=== PATIENT | female | born 1935 | race Caucasian/White ===

== ENCOUNTER 2023-08-27 16:08 | Inpatient (IN) ==
--- NOTE | 2023-08-27 16:47 | ED Triage Note ---
Date of Service August 27, 2023 Provider in Triage Author: Sly Snider History of Present Illness This patient was briefly evaluated while in triage. An abbreviated physical exam was performed. This patient is a 87-year-old Female who presents to the ED for evaluation of dehydration. 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 Had radiation 6 days ago and her throat is very sore from the radiation. Having a lot of trouble swallowing for the past couple days from the pain. She is able to swallow, just very painful. Not able to eat or drink much. Hgb down to 9.6 this morning. No fevers, cough, or URI symptoms. Physical Exam GENERAL: Non-toxic and in no acute distress. HEENT: Pupils equal. No obvious scleral icterus. Erythema and mass to the left side of the neck. Pharynx and tongue are erythematous with ulcers and white patches. HEART: Regular rate and rhythm. LUNGS: Clear to auscultation. No accessory muscle use. ABDOMEN: Soft, non-tender to palpation. NEURO: Alert and oriented. No obvious neurological deficits on quick neuro exam. Initial orders for labs and / or imaging were placed and patient was placed in the waiting area until a bed is available. Please see further documentation for the full ED course. MDM / Impression Impression Impression: Weakness, Dehydration, Throat cancer
[2023-08-27] MEDS: SODIUM CHLORIDE 0.9% 1,000 ML IV STA (17:05)
[2023-08-27 17:33] LABS: Hematocrit (blood only) 34.2 % (37.0-47.0); Hemoglobin 11.1 g/dl (12.0-16.0); Mean Corpuscular Hemoglobin 26.8 pg (25.0-34.0); Mean Corpuscular Hgb Conc 32.5 g/dL (32.0-36.0); Mean Corpuscular Volume 82.6 fL (80.0-100.0); Mean Platelet Volume 9.8 fL (9.4-12.4); Platelet Count 457 K/uL (130-400); RDW Coefficient of Variation 14.2 % (11.5-14.5); RDW Standard Deviation 42.7 fL (36.4-46.3); Red Blood Count 4.14 M/uL (4.20-5.40); White Blood Count 34.56 K/ul (4.8-10.8)
[2023-08-27 17:44] LABS: Albumin Level 3.1 gm/dl (3.4-5.0); BUN Creatinine Ratio 35.4 (10-20); Bilirubin,Total 0.6 mg/dl (0.2-1.0); Calcium 9.3 mg/dl (8.6-10.3); Creatinine Clr Calc Pharmacy 61.5 ml/min; Est GFR (African American) 92.5 ml/min; Est GFR (Non-African American) 79.8 ml/min; Globulin 3.1 gm/dl (2.5-4.0); Magnesium 1.9 mg/dl (1.7-2.4); Potassium 3.8 mmol/L (3.5-5.1); Total Protein 6.2 gm/dl (6.0-8.3)
[2023-08-27 17:50] LABS: Troponin I High Sensitivity 10.4 pg/ml (0-14)
[2023-08-27 17:55] LABS: INR 1.1 (0.9-1.1); Partial Thromboplastin Time 28 Seconds (21-31); Prothrombin Time 11.9 Seconds (9.0-12.0)
[2023-08-27] MEDS: MoRPHine SULFATE 2 MG/ML CARP IV STA (18:21)
[2023-08-27] MEDS: ONDANSETRON INJ 2 MG/ML 2 ML VIAL IV STA (18:21)
--- NOTE | 2023-08-27 18:21 | Emergency Department Note ---
Impression & Plan Weakness, Dehydration, Throat cancer ED Provider Note Provider: Sly Snider MD DATE OF SERVICE: 08/27/2023 CHIEF COMPLAINT: Dehydration, abnormal labs HISTORY OF PRESENT ILLNESS: Patient is a 87-year-old female history of PMR unfortunately throat cancer status postradiation presenting here today from [facility]. Moved to the area to be closer to family now at [facility] over the last several days. Had radiation treatment finishing last week. Prior ENT/head and neck treatment in [place]. Patient however over the past week has had worsening difficulty swallowing. Having burning sensation of her mouth and neck. Having difficulty swallowing and taking medications. Ibuprofen and Tylenol being used as well as some hydrocodone and oxycodone with minimal improvement. Nauseous at times. Little bit of diarrhea this morning maybe a little bit of lower abdominal discomfort earlier. Reports over main discomfort around the neck. Maybe a fever few days ago but denies significant rhinorrhea or difficulty breathing. Feeling lightheaded and weak and dizzy now with decreased intake concerns for dehydration. Outpatient blood work was concerning possibly for some anemia. Sent here for further evaluation. Patient on chronic prednisone. No falls. Possibly considering hospice or palliative care. PAST MEDICAL HISTORY: As noted above MEDICATIONS: Reviewed medication list SOCIAL HISTORY: Newly a resident at [facility], just moved to the [facility] PHYSICAL EXAM: GENERAL: alert and oriented in no acute distress on stretcher fatigued in appearance Head: normocephalic and atraumatic EYES: No injection, discharge or icterus. NECK: Trachea midline. Right mid to lower neck with swelling (approximately 8 cm in diameter) and some erythema and skin changes there of prior radiation treatment by report. No large active wound or eschar noted. ENT: Mucous membranes pink and somewhat dry. LUNGS: Airway patent. No retractions. Breath sounds clear with good air entry bilaterally. HEART: Regular rate and rhythm. No chest wall tenderness ABDOMEN: Soft and non-tender, without guarding or rebound. No masses appreciated. SKIN: Acyanotic, warm, dry, without rashes with some redness and swelling of the left lower neck as above. EXTREMITIES: Without swelling, tenderness or deformity NEUROLOGICAL: No focal deficits moving all extremities. No aphasia. No facial droop or slurred speech. EK bpm normal sinus rhythm with left bundle branch block. No acute ST segment elevation with some inferior lateral T wave changes and a QTc of 464. No priors available. CONTINUOUS CARDIAC MONITORING: was ordered and showed a heart rate of 70s to 90s bpm in normal sinus rhythm Patient's laboratory studies and imaging reviewed. Differential includes Infection, dehydration, metabolic abnormality, hypo/hyperglycemia, electrolyte disturbance, anemia, hypoxia, cardiac sources, intracerebral event, toxicologic, neurologic, as well as other pathologies. IMPRESSION/MEDICAL DECISION MAKING: Patient blood work reportedly showed some hemoglobin hemoglobin the nines earlier but on repeat here 11.1. Does have significant leukocytosis of 34.5. Unclear baseline. Is chronically on steroids and just had radiation treatment. Afebrile here. Some difficulty swallowing. Not stridulous and breathing okay. Little bit of hyponatremia but no evidence of severe renal dysfunction today. No significant chest pain and troponin normal. EKG with left bundle branch block with no priors for comparison. Abdomen maybe a little bit discomfort earlier with some diarrhea but no significant abdominal tenderness. No evidence of acute hepatitis or pancreatitis on blood work. Given IV fluids here. Will give some Zofran as well as some IV pain medication to help with her mouth and throat pain. Likely postradiation related. Lower suspicion for sepsis or diffuse infection. Is possibly considering hospice and is unsure if she would like a feeding tube. No feel additional imaging the neck would be helpful at this time. Likely some of her components are more related to radiation is already on steroids. Given the difficulties with her oral hydration and intake and weakness at her age, discussed staying for further evaluation and treatment here. Can discuss possible feeding tube and possible palliative care measures while here. Pain needs optimized. I do not believe this represents meningitis or CVA given her lack of focal deficits. DIAGNOSIS: Weakness, dehydration, throat cancer and pain DISPOSITION: Hospitalist will evaluate Patient was agreeable with this plan. Past Med/Surg History Medical History (Updated 08/27/23 @ 19:20 by Isaiah Mace MD) Throat cancer Social History Smoking Status: Never smoker Preferred Language: Iraqi Feels Safe at Home: Yes Allergies Allergies Allergy/AdvReac Type Severity Reaction Status Date / Time NARCOTICS AdvReac Intermediate NAUSEA-"DOESN'T Uncoded 08/27/23 18:35 LIKE TO TAKE" Home Meds Home Medications Medication Instructions Recorded Confirmed acetaminophen 500 mg tablet 1,000 mg PO DIRECTED PRN Pain 08/27/23 08/27/23 (Tylenol Extra Strength) cholecalciferol (vitamin D3) 25 0 mcg PO DAILY 08/27/23 08/27/23 mcg (1,000 unit) capsule (Vitamin D3) duloxetine 30 mg capsule,delayed 0 mg PO DAILY 08/27/23 08/27/23 release (Cymbalta) ibuprofen 200 mg tablet 400 mg PO DIRECTED PRN Pain 08/27/23 08/27/23 levothyroxine 50 mcg tablet 0 mcg PO DAILY 08/27/23 08/27/23 prednisone 5 mg tablet 5 mg PO DAILY 08/27/23 08/27/23 Results & Data (ED) Vital Signs Vital Signs - 24 hr 08/27/23 16:44 08/27/23 17:24 08/27/23 17:30 Temperature 36.4 C L Temperature Source Temporal Artery Scan Pulse Rate 102 H 86 85 Pulse Rate [Apical] Pulse Rate from SpO2 Sensor 86 Respiratory Rate 20 25 H Respiratory Effort / Characteristics Non-Labored Spontaneous Respiratory Depth Normal Blood Pressure 111/68 144/64 H Blood Pressure [Left Arm] Blood Pressure Mean 82 90 Blood Pressure Mean [Left Arm] Pulse Oximetry 97 96 Oxygen Delivery Method Room Air Room Air Sepsis Recent Fever Within 48 Hours No Sepsis New/Unexplained Change in Mental Status No Sepsis Action Taken by Nursing No Action Required 08/27/23 18:00 08/27/23 18:30 08/27/23 18:40 Temperature Temperature Source Pulse Rate 84 84 Pulse Rate [Apical] Pulse Rate from SpO2 Sensor 83 83 Respiratory Rate 16 19 Respiratory Effort / Characteristics Respiratory Depth Blood Pressure 136/72 122/61 Blood Pressure [Left Arm] Blood Pressure Mean 93 99 Blood Pressure Mean [Left Arm] Pulse Oximetry 90 96 Oxygen Delivery Method Room Air Sepsis Recent Fever Within 48 Hours Sepsis New/Unexplained Change in Mental Status Sepsis Action Taken by Nursing 08/27/23 18:50 08/27/23 19:00 08/27/23 19:00 Temperature Temperature Source Pulse Rate 83 82 Pulse Rate [Apical] Pulse Rate from SpO2 Sensor 83 82 Respiratory Rate 14 19 Respiratory Effort / Characteristics Respiratory Depth Blood Pressure 123/61 Blood Pressure [Left Arm] Blood Pressure Mean 101 Blood Pressure Mean [Left Arm] Pulse Oximetry 96 93 Oxygen Delivery Method Sepsis Recent Fever Within 48 Hours Sepsis New/Unexplained Change in Mental Status Sepsis Action Taken by Nursing 08/27/23 19:06 08/27/23 19:10 08/27/23 19:20 Temperature Temperature Source Pulse Rate 82 82 Pulse Rate [Apical] Pulse Rate from SpO2 Sensor 82 82 Respiratory Rate 14 21 Respiratory Effort / Characteristics Respiratory Depth Blood Pressure Blood Pressure [Left Arm] Blood Pressure Mean Blood Pressure Mean [Left Arm] Pulse Oximetry 97 95 93 Oxygen Delivery Method Room Air Sepsis Recent Fever Within 48 Hours Sepsis New/Unexplained Change in Mental Status Sepsis Action Taken by Nursing 08/27/23 19:21 08/27/23 21:19 08/27/23 22:34 Temperature Temperature Source Pulse Rate 83 Pulse Rate [Apical] 81 Pulse Rate from SpO2 Sensor Respiratory Rate 14 16 Respiratory Effort / Characteristics Non-Labored Spontaneous Non-Labored Respiratory Depth Normal Normal Blood Pressure Blood Pressure [Left Arm] 135/66 Blood Pressure Mean Blood Pressure Mean [Left Arm] 89 Pulse Oximetry 95 Oxygen Delivery Method Room Air Sepsis Recent Fever Within 48 Hours Sepsis New/Unexplained Change in Mental Status Sepsis Action Taken by Nursing Laboratory Data 08/27/23 17:06 08/27/23 17:06 Lab Results 08/27/23 08/27/23 Range/Units 17:06 19:30 WBC 34.56 H* (4.8-10.8) K/ul RBC 4.14 L (4.20-5.40) M/uL Hgb 11.1 L (12.0-16.0) g/dl Hct 34.2 L (37.0-47.0) % MCV 82.6 (80.0-100.0) fL MCH 26.8 (25.0-34.0) pg MCHC 32.5 (32.0-36.0) g/dL RDW Std Deviation 42.7 (36.4-46.3) fL RDW Coeff of Franco 14.2 (11.5-14.5) % Plt Count 457 H (130-400) K/uL MPV 9.8 (9.4-12.4) fL Immature Gran % (Auto) 1.2 % Neut % (Auto) 85.6 % Lymph % (Auto) 2.7 % Gosper % (Auto) 9.9 % Eos % (Auto) 0.1 % Baso % (Auto) 0.5 % Neut # (Auto) 29.58 H (1.40-6.50) K/uL Lymph # (Auto) 0.94 L (1.20-3.40) K/uL Gosper # (Auto) 3.43 H (0.11-0.59) K/uL Eos # (Auto) 0.04 (0.00-0.50) K/uL Baso # (Auto) 0.16 (0.00-0.20) K/uL Immature Gran # (Auto) 0.41 H (0.01-0.20) K/uL PT 11.9 (9.0-12.0) Seconds INR 1.1 (0.9-1.1) APTT 28 (21-31) Seconds PTT Ratio 1.0 Sodium 132 L (136-145) mmol/L Potassium 3.8 (3.5-5.1) mmol/L Chloride 95 L (98-107) mmol/L Carbon Dioxide 27 (21-32) mmol/L Anion Gap 10 (3-11) BUN 23 (6-23) mg/dl Creatinine 0.65 (0.6-1.2) mg/dl Est Cr Clr Drug Dosing 61.5 ml/min Est GFR ( Amer) 92.5 ml/min Est GFR (Non-Af Amer) 79.8 ml/min BUN/Creatinine Ratio 35.4 H (10-20) Glucose 115 H (70-99(Fasting)) mg/dl Calcium 9.3 (8.6-10.3) mg/dl Magnesium 1.9 (1.7-2.4) mg/dl Total Bilirubin 0.6 (0.2-1.0) mg/dl AST 12 L (13-39) U/L ALT 6 L (7-52) U/L Alkaline Phosphatase 118 H (34-104) U/L Troponin I High Sens 10.4 (0-14) pg/ml Total Protein 6.2 (6.0-8.3) gm/dl Albumin 3.1 L (3.4-5.0) gm/dl Globulin 3.1 (2.5-4.0) gm/dl Albumin/Globulin Ratio 1.0 (0.9-2) Lipase 9 L (11-82) U/L SARS-CoV-2, RNA, NAAT NEGATIVE (NEGATIVE) Administered Medications Melatonin (Melatonin 3 Mg Tab) 3 mg PO HS PRN PRN Reason: Sleep Stop: 03/01/24 21:56 Last Admin: 08/27/23 22:35 Dose: 3 mg Documented By: BRAnival Discontinued Medications Sodium Chloride (Nss) 1,000 mls @ 999 mls/hr IV .Q1H1M STA Stop: 08/27/23 17:47 Last Infusion: 08/27/23 18:39 Dose: Infused Documented By: Admin: 08/27/23 17:05 Dose: 999 mls/hr Documented By: AM Sodium Chloride (Nss) 500 mls @ 999 mls/hr IV .Q31M ONE Stop: 08/27/23 18:36 Last Infusion: 08/27/23 18:39 Dose: Infused Documented By: Admin: 08/27/23 18:23 Dose: 999 mls/hr Documented By: NH Morphine Sulfate (Morphine Sulfate 2 Mg/Ml Carp) 2 mg IV NOW STA Stop: 08/27/23 18:07 Last Admin: 08/27/23 18:21 Dose: 2 mg Documented By: NH Ondansetron HCl (Ondansetron Inj 2 Mg/Ml 2 Ml Vial) 4 mg IV NOW STA Stop: 08/27/23 18:07 Last Admin: 08/27/23 18:21 Dose: 4 mg Documented By: HI Imaging Data Radiologist's Impression: Chest X-Ray 08/27/23 16:47 XR chest 1V portable HISTORY: Chest pain, nonspecific COMPARISON: None. FINDINGS: The cardiac silhouette is normal in size. There is a mildly tortuous and calcified thoracic aorta. Cervical spinal fusion hardware is noted. No pneumothorax. No focal lung consolidations to suggest a pneumonia. No evidence for pulmonary edema. There is blunting of the right lateral costophrenic sulcus. No acute fractures identified. IMPRESSION: 1. Blunting of the right lateral costophrenic sulcus which could be due to chronic pleural thickening or a trace right pleural effusion. 2. Otherwise, no acute process within the chest. ACT 112: Negative or not required by law. Electronically signed by: Greg Rockwell M.D. 08/27/2023 6:22 PM Discharge Plan Visit Data Chief Complaint: Dehydration Stated Complaint: BLOOD WORK, DEHYDRATION, ABNORMAL LABS ED Provider: Sly Snider Discharge Problem: Weakness, Dehydration, Throat cancer Patient Disposition: Being Evaluated by Hospitalist Forms Stand Alone Forms: My [facility] Prescriptions Prescriptions: No Action prednisone 5 mg Tablet 5 mg PO DAILY acetaminophen [Tylenol Extra Strength] 500 mg Tablet 1,000 mg PO DIRECTED PRN (Reason: Pain) levothyroxine 50 mcg Tablet 0 mcg PO DAILY Rx Instructions: UNSURE OF STRENGTH, UNABLE TO VERIFY ibuprofen 200 mg Tablet 400 mg PO DIRECTED PRN (Reason: Pain) cholecalciferol (vitamin D3) [Vitamin D3] 25 mcg (1,000 unit) Capsule 0 mcg PO DAILY Rx Instructions: UNSURE OF STRENGTH duloxetine [Cymbalta] 30 mg Capsule,Delayed Release(Dr/Ec) 0 mg PO DAILY Rx Instructions: UNSURE OF STRENGTH, UNABLE TO VERIFY Referrals Referrals: PCP,NO [Physician] -
[2023-08-27] MEDS: SODIUM CHLORIDE 0.9% 500 ML IV ONE (18:23)
[2023-08-27 18:24] LABS: Basophils # (auto) 0.16 K/uL (0.00-0.20); Basophils % (auto) 0.5 %; Eosinophils # (auto) 0.04 K/uL (0.00-0.50); Eosinophils % (auto) 0.1 %; Immature Granulocytes # (auto) 0.41 K/uL (0.01-0.20); Immature Granulocytes % (auto) 1.2 %; Lymphocytes # (auto) 0.94 K/uL (1.20-3.40); Lymphocytes % (auto) 2.7 %; Monocytes # (auto) 3.43 K/uL (0.11-0.59); Monocytes % (auto) 9.9 %; Neutrophils # (auto) 29.58 K/uL (1.40-6.50); Neutrophils % (auto) 85.6 %
--- NOTE | 2023-08-27 18:33 | History & Physical Report ---
Date of Service August 27, 2023 History of Present Illness Chief Complaint: Dehydration, weakness, throat pain Primary Care Provider: NO PCP Paloma is an 87-year-old female with PMH of throat cancer. She presented from [facility] for decreased ability to eat and drink x 6 days, which started shortly after she received radiation therapy for her throat cancer. She is not currently on chemo or Neupogen. [facility] also noted down-trending hemoglobin; however, Hgb was 11 on arrival. ED course: ROS: Patient endorses difficulty swallowing Patient denies Past Med/Surg History Social History Smoking Status: Never smoker Preferred Language: Swedish Feels Safe at Home: Yes Physical Exam Physical Exam: General: no acute distress; non-toxic appearing; well-nourished; cooperative HEENT: normocephalic, atraumatic; no scleral icterus; PERRLA w/ EOMs intact; moist mucus membrane; vision and hearing grossly intact Neck: supple; no JVD; no lymphadenopathy; trachea midline Skin: warm, dry without signs of tenting; no cyanosis; no rashes, bruising, lesions, or erythema noted CV: chest wall NTP; RRR; S1/S2 normal; no murmurs/rubs/gallops; pulses intact and symmetric at radial, DP, and PT Lungs: no acute respiratory distress; symmetrical chest wall expansion; clear breath sounds across all lung rosa w/o adventitious sounds; no wheezing ABD: Soft, NTP; BS present; no rebound/guarding; no ascites; no distention; negative CVA tenderness MSK: no tics or fasciculations; no edema noted in the LEs b/l, nonerythematous Neuro: A&Ox3; normal mood and affect; fluent speech; no focal deficits; sensation grossly intact in the LEs b/l Radiation burn neck Results & Data Results & Data Vital Signs (Past 12 Hours) Vital Signs Temp Pulse Resp BP Pulse Ox O2 Del Method 08/27/23 17:24 86 08/27/23 16:44 36.4 C L 102 H 20 111/68 97 Room Air Laboratory Results Abnormal lab results 08/27/23 Range/Units 17:06 WBC 34.56 H* (4.8-10.8) K/ul RBC 4.14 L (4.20-5.40) M/uL Hgb 11.1 L (12.0-16.0) g/dl Hct 34.2 L (37.0-47.0) % Plt Count 457 H (130-400) K/uL Neut # (Auto) 29.58 H (1.40-6.50) K/uL Lymph # (Auto) 0.94 L (1.20-3.40) K/uL Parke # (Auto) 3.43 H (0.11-0.59) K/uL Immature Gran # (Auto) 0.41 H (0.01-0.20) K/uL Sodium 132 L (136-145) mmol/L Chloride 95 L (98-107) mmol/L BUN/Creatinine Ratio 35.4 H (10-20) Glucose 115 H (70-99(Fasting)) mg/dl AST 12 L (13-39) U/L ALT 6 L (7-52) U/L Alkaline Phosphatase 118 H (34-104) U/L Albumin 3.1 L (3.4-5.0) gm/dl Lipase 9 L (11-82) U/L Diagnostic Findings Chest X-Ray 08/27/23 16:47 XR chest 1V portable HISTORY: Chest pain, nonspecific COMPARISON: None. FINDINGS: The cardiac silhouette is normal in size. There is a mildly tortuous and calcified thoracic aorta. Cervical spinal fusion hardware is noted. No p neumothorax. No focal lung consolidations to suggest a pneumonia. No evidence for pulmonary edema. There is blunting of the right lateral costophrenic sulcus. No acute fractures identified. IMPRESSION: 1. Blunting of the right lateral costophrenic sulcus which could be due to chronic pleural thickening or a trace right pleural effusion. 2. Otherwise, no acute process within the chest. ACT 112: Negative or not required by law. Electronically signed by: Greg Rockwell M.D. 08/27/2023 6:22 PM PG Care Time/CCT Total # of Minutes Spent Total Time Spent with Patient: Total time spent is greater than 50% in coordination of care (as documented) at patient's floor/unit and/or counseling patient: Coding
--- NOTE | 2023-08-27 19:12 | History & Physical Report ---
Date of Service August 27, 2023 Assessment & Plan (1) Goals of care, counseling/discussion: Plan: Patient reports that she had hoped that after radiation her pain and symptoms would improve, but she notes that the burning pain only worsened with radiation and she has not gotten any meaningful relief. She reports her mouth is very dry, and she has pain on her left lip border and her left neck. She has not had fever/chills/sweats, she has had tenderness around the neck worsened since radiation. She no longer wishes to pursue further radiation treatments and would like to focus on pain management and hospice. Her daughter notes she would like to have a family discussion with casework manager, palliative care, and the patient tomorrow and in the meantime the patient would like to have one-time hydration by IV overnight with the intention to discontinue all artificial nutrition and transition to BRIDGE CRANE OPERATOR 2/. Should she have any clinical worsening she would want to move BRIDGE CRANE OPERATOR and have family updated. She notes that she feels like it will only be a few days weeks at most and that she both is ready to pass and feels that she is going to pass very soon. Paloma does reports she has intermittent alternating loose bowel movements and some constipation, which have been slightly loose with a diffusely mildly tender abdomen without focal tenderness. She has had multiple hospital exposures noted would be okay with C. difficile treatment and is agreeable to PCR testing, she does not want any type of CAT scans or further imaging to evaluate her abdomen. She also does not wish to have any scans of her neck performed and notes even if there was infection/abscess she would not want surgery or drainage to treat that she would want symptomatic care. - No escalation of care, declines additional imaging. - Palliative, CM consulted (2) Throat cancer: Plan: - s/p one year of Keytruda, recently completed course ofradiation - worsening post-radiation, pt wishes to transition to hospice - Morphine IV for pain control (3) Leukocytosis: Plan: Severe leukocytosis of 34.5 with left shift. No respiratory symptoms, does have increased erythema postradiation has been on steroids however this seems disproportionate for this and is with left shift Patient does have diarrhea and a tender abdomen, declines a CTA/P and CT of the neck. Is okay with PCR testing. Notes she would not surgery/drainage or interventions even if abnormalities were noted (see above). Denies fever/chills/sweats -PCR testing --> If c diff positive tx vanco (4) Dehydration: Plan: - IV abx overnight, anticipate d/c tomorrow and transition to hospice Plan Patient recently transferred to [facility] from [facility]. Records pending DVT: Deferred Diet: Speech consulted prior to advancing. Pt does not wish to eat/drink due to pain at this time. Clears as tolerated CODE: DNR. If worsening --> BRIDGE CRANE OPERATOR Dispo: M/S. History of Present Illness Primary Care Provider: NO PCP Paloma is an 87-year-old female with a past medical history of throat cancer status post 1 year of Keytruda and subsequent radiation therapy who just transferred to [facility] in anticipation of needing additional services for hospice who has had worsened p.o. intake, neck pain post radiation, and loose bowel movements/diarrhea. Seen at the bedside with her daughter and requests initiation of hospice tomorrow. She expresses that she saw her and another family member go through hospice and has a very good understanding of what hospice entails, the decision to focus on quality of life and comfort rather than curative treatments and extending life, and would like to transition to this as soon as possible. Her daughter is at bedside and notes that they do not have the resources for 24-hour care to care for Paloma at home, but would like to transition to hospice with additional services potentially at [facility]. Patient reports that she had hoped that after radiation her pain and symptoms would improve, but she notes that the burning pain only worsened with radiation and she has not gotten any meaningful relief. She reports her mouth is very dry, and she has pain on her left lip border and her left neck. She has not had fever/chills/sweats, she has had tenderness around the neck worsened since radiation. She no longer wishes to pursue further radiation treatments and would like to focus on pain management and hospice. Her daughter notes she would like to have a family discussion with casework manager, palliative care, and the patient tomorrow and in the meantime the patient would like to have one-time hydration by IV overnight with the intention to discontinue all artificial nutrition and transition to BRIDGE CRANE OPERATOR 2/. Should she have any clinical worsening she would want to move BRIDGE CRANE OPERATOR and have family updated tonab Paloma does reports she has intermittent alternating loose bowel movements and some constipation, which have been slightly loose with a diffusely mildly tender abdomen without focal tenderness. She has had multiple hospital exposures noted would be okay with C. difficile treatment and is agreeable to PCR testing, she does not want any type of CAT scans or further imaging to evaluate her abdomen. She also does not wish to have any scans of her neck performed and notes even if there was infection/abscess she would not want surgery or drainage to treat that she would want symptomatic care. Denies chest pain, chest pressure. She notes her pain is significantly improved after 2 mg of morphine in the ER. Patient recently transferred to [facility] from [facility] does not have records available at this time. Requested, patient's daughter will attempt to get updated record Allergies Allergy/AdvReac Type Severity Reaction Status Date / Time NARCOTICS AdvReac Intermediate NAUSEA-"DOESN'T Uncoded 08/27/23 18:35 LIKE TO TAKE" Home Medications Medication Instructions Recorded Confirmed Type acetaminophen 500 mg tablet 1,000 mg PO DIRECTED PRN Pain 08/27/23 08/27/23 History (Tylenol Extra Strength) cholecalciferol (vitamin D3) 25 0 mcg PO DAILY 08/27/23 08/27/23 History mcg (1,000 unit) capsule (Vitamin D3) duloxetine 30 mg capsule,delayed 0 mg PO DAILY 08/27/23 08/27/23 History release (Cymbalta) ibuprofen 200 mg tablet 400 mg PO DIRECTED PRN Pain 08/27/23 08/27/23 History levothyroxine 50 mcg tablet 0 mcg PO DAILY 08/27/23 08/27/23 History prednisone 5 mg tablet 5 mg PO DAILY 08/27/23 08/27/23 History Past Med/Surg History Medical History (Updated 08/27/23 @ 19:20 by Isaiah Mace MD) Throat cancer Social History Smoking Status: Never smoker Preferred Language: Maltese Feels Safe at Home: Yes Physical Exam Physical Exam: General: A&Ox3. Appears fatigued. Nontoxic. HEENT: L neck with tender, mildly erythamatous mass. Pulm: Diminished. -wheezes, -rales, -rhonchi. Symmetrical chest rise. No increased work of breathing. No respiratory distress. Cardiac: RRR, -mrg. Radial pulses intact and symmetrical. Abdominal: Soft, mildl diffuse tenderness without rebound/guarding. BS present. Results & Data Results & Data Vital Signs (Past 12 Hours) Vital Signs Temp Pulse Resp BP Pulse Ox O2 Del Method 08/27/23 18:00 84 16 136/72 90 Room Air 08/27/23 17:30 85 25 H 144/64 H 96 Room Air 08/27/23 17:24 86 08/27/23 16:44 36.4 C L 102 H 20 111/68 97 Room Air PG Care Time/CCT Total # of Minutes Spent Total Time Spent with Patient: Total time spent is greater than 50% in coordination of care (as documented) at patient's floor/unit and/or counseling patient: Coding Level of Care Code 54517 INT INP/OBS CARE 3/75MIN Diagnoses Goals of care, counseling/discussion Z71.89 Throat cancer C14.0 Leukocytosis D72.829 Dehydration E86.0
[2023-08-27] MEDS: MELATONIN 3 MG TAB PO PRN (22:35)
[2023-08-27] MEDS: ZOLPIDEM TARTRATE 5 MG TAB PO PRN (23:01)
[2023-08-28] MEDS ORDERED: ACETAMINOPHEN 1,000 MG/100 ML VIAL IV PRN (00:06)
[2023-08-28] MEDS: LACTATED RINGER'S 1,000 ML IV SCH ×2 (00:06→13:54)
[2023-08-28] MEDS ORDERED: MELATONIN 3 MG TAB PO PRN (00:06)
[2023-08-28] MEDS ORDERED: ACETAMINOPHEN 500 MG TAB PO PRN (00:06)
[2023-08-28] MEDS: MoRPHine SULFATE 4 MG/ML 1 ML CARP\\VIAL IV PRN (01:59)
[2023-08-28] MEDS: ONDANSETRON INJ 2 MG/ML 2 ML VIAL IV PRN (02:00)
--- NOTE | 2023-08-28 07:14 | Hospitalist Progress Note ---
Date of Service August 28, 2023 Assessment & Plan (1) Goals of care, counseling/discussion: Plan: - Will try to obtain prior records - Concern for worsening cancer vs radiation injury - sounds like she has not eaten much over the past few months, does not want feeding tube. Will continue with IVF pending further clarity on cancer prognosis - she does not wish to pursue and further radiation treatments - If further clarity needed for staging of cancer, would consider further imaging but will try to obtain records first - interested in back in [facility] [place] with Hospice when appropriate (2) Throat cancer: Plan: - s/p one year of Keytruda, recently completed course of radiation - worsening post-radiation, pt wishes to transition to hospice - scheduled Tylenol, Toradol, morphine for breakthrough pain - add magic mouthwash and Carafate (3) Leukocytosis: Plan: Severe leukocytosis of 34.5 with left shift. No respiratory symptoms, does have increased erythema postradiation has been on steroids however this seems disproportionate for this and is with left shift Patient does have diarrhea and a tender abdomen, declines a CTA/P and CT of the neck. Is okay with PCR testing. Notes she would not surgery/drainage or interventions even if abnormalities were noted (see above). Denies fever/chills/sweats -PCR testing --> If c diff positive tx vanco (4) Dehydration: Plan: - Plan to continue IVF pending further clarity with cancer staging Plan DVT: Deferred Diet: Pt does not wish to eat/drink due to pain at this time. Clears as tolerated CODE: DNR. If worsening --> FIELD CROP I FARMWORKER Admission and Anticipated Discharge Date Admission Date: August 27, 2023 Supervising Physician Co-Signing Physician Notes I personally examined the patient and verified all kinney points of history and exam, discussed case, and agree with decision making with Dr Bruno Shirley helping with the pain, sedating some, initially it sounds like she does not particularly care for the sedation, but then after further iterations of discussion, she notes that she is just relieved that the pain is under better control and she can sleep. Has not been able to swallow. Awaiting records from radiation oncology. Vitals noted, in general she is awake and alert very fatigu ed, does repeat herself some, resident physician notes that her mental status was sharp earliertherefore likely related to morphine, no distress. Breathing unlabored no accessory muscle use good effort. Mild appearance of radiation injury on right neck essentially looking a bit like a burn, but skin is intact. Neuro shows cranial nerves II through XII to be grossly intact gross motor and sensory intact. Dysphagia, acute on chronic pain, head neck cancerwould like to obtain old records, but given everything that we know thus far, it sounds like her prognosis is quite poorher dysphagia is likely either from the cancer itself, radiation injury, or bothbut it sounds like she also has not been able to eat or drink very well since around according to her familymeaning that she is likely so far behind with acute protein calorie malnutrition already that her deconditioning and malnutrition are likely as much a threat to her wellbeing as the cancer itself, and given that either the cancer itself or radiation injury affecting more dysphagia are likely to not improve very much in the near future, and given that she really does not want a PEG tubeunfortunately overall it seems from multiple angles both individually and simultaneously, her prognosis is quite poor. Work on pain control. Obtain old records to confirm our suspicions, work towards goal of return to SNF with hospice once pain is under better and more reliable control. Subjective Pt seen at bedside. Notes neck pain and difficulty swallowing. Pain with swallowing. Has been difficult to eat since . Palliative radiation one week ago, worsening pain since. Review of Systems Review of Systems: As per above Physical Exam Physical Exam: Constitutional: well-appearing, no acute distress HEENT: NCAT, no conjunctival injection, erythema/irritation left side of neck CV: regular rhythm, no murmur appreciated, extremities well-perfused, no LE enedina ma Resp: CTABL, no wheezes/rales/rhonchi appreciated, no increased work of breathing MSK: no gross deformities appreciated Skin: warm, dry, no rash appreciated Neuro: alert, oriented, no focal neurologic deficit appreciated Results & Data Results & Data Vital Signs (Past 12 Hours) Vital Signs Temp Pulse Pulse Pulse Resp BP BP 08/28/23 07:10 36.9 C 82 16 141/74 H 08/27/23 23:30 08/27/23 23:30 08/27/23 23:30 36.8 C 80 16 138/68 08/27/23 23:30 08/27/23 23:00 80 13 135/72 08/27/23 22:34 81 16 135/66 08/27/23 21:19 83 08/27/23 19:21 14 08/27/23 19:20 82 21 Pulse Ox Pulse Ox O2 Del Method O2 Del Method 08/28/23 07:10 94 Room Air 08/27/23 23:30 Room Air 08/27/23 23:30 95 Room Air 08/27/23 23:30 95 Room Air 08/27/23 23:30 Room Air 08/27/23 23:00 93 08/27/23 22:34 95 Room Air 08/27/23 21:19 08/27/23 19:21 08/27/23 19:20 93 Resident Activity Tracking Resident Involvement: Resident Care Provided Care Provided: Adult Hospital Medicine
[2023-08-28] MEDS: MoRPHine SULFATE 2 MG/ML CARP IV PRN ×3 (08:01→19:52)
[2023-08-28] MEDS: CHOLECALCIFEROL 25 MCG (1000 UNITS) TAB PO SCH (08:09)
[2023-08-28] MEDS: DULoxetine HCL 20 MG CAP PO SCH (08:09)
[2023-08-28] MEDS: predniSONE 5 MG TAB PO SCH (08:09)
--- NOTE | 2023-08-28 11:41 | Electrocardiogram Report ---
Test Reason : Blood Pressure : / mmHG Vent. Rate : 091 BPM Atrial Rate : 091 BPM P-R Int : 134 ms QRS Dur : 134 ms QT Int : 378 ms P-R-T Axes : 061 019 143 degrees QTc Int : 464 ms Normal sinus rhythm Left bundle branch block Abnormal ECG No previous ECGs available Confirmed by Marco Griffin ([id number]) on 08/28/2023 11:41:08 AM Referred By: REFERRED SELF Confirmed By:Marco Griffin
[2023-08-28] MEDS ORDERED: MoRPHine SULFATE 4 MG/ML 1 ML CARP\\VIAL IV PRN (13:27)
[2023-08-28] MEDS: MoRPHine SULFATE 2 MG/ML CARP IV STA (16:03)
--- NOTE | 2023-08-28 16:24 | Billing Data ---
Date of Service August 28, 2023 Coding Level of Care Code 63086 IN/OBS DISCH 30 MIN/LESS
[2023-08-28 16:35] LABS: Appearance Urine Cloudy (Clear); Bacteria Urine Automated Negative (Negative); Bilirubin Urine Negative (Negative); Blood Urine Negative (Negative); Color Urine Yellow; Epithelial Cell Urine Auto >30 /lpf (0-5); Glucose Urine UA Negative (Negative); Ketones Urine Trace (Negative); Leukocyte Esterase Urine 2+ (Negative); Nitrite Urine Negative (Negative); Protein Urine Negative (Negative); RBC Urine Automated 0-4 /hpf (0-4); Specific Gravity Urine 1.016 (1.000-1.030); Urobilinogen Urine Negative (Negative); WBC Urine Automated >30 /hpf (0-5); pH Urine 5.5 (4.5-7.5)
[2023-08-28] MEDS: ACETAMINOPHEN 1,000 MG/100 ML VIAL IV SCH (16:38)
[2023-08-28] MEDS: KETOROLAC TROMETHAMINE 15 MG/ML VIAL IV SCH (16:38)
[2023-08-28] MEDS: SUCRALFATE 1 GM/10 ML UDC PO SCH (16:39)
[2023-08-28] MEDS: FIRST - Mouthwash BLM 119 ML PO PRN (23:32)
[2023-08-29 06:32] LABS: Basophils # (auto) 0.07 K/uL (0.00-0.20); Basophils % (auto) 0.5 %; Eosinophils % (auto) 0.7 %; Hematocrit (blood only) 28.9 % (37.0-47.0); Hemoglobin 9.2 g/dl (12.0-16.0); Immature Granulocytes # (auto) 0.13 K/uL (0.01-0.20); Immature Granulocytes % (auto) 0.9 %; Lymphocytes # (auto) 0.88 K/uL (1.20-3.40); Lymphocytes % (auto) 5.9 %; Mean Corpuscular Hemoglobin 26.7 pg (25.0-34.0); Mean Corpuscular Hgb Conc 31.8 g/dL (32.0-36.0); Mean Corpuscular Volume 83.8 fL (80.0-100.0); Mean Platelet Volume 9.5 fL (9.4-12.4); Monocytes # (auto) 2.06 K/uL (0.11-0.59); Monocytes % (auto) 13.8 %; Neutrophils # (auto) 11.69 K/uL (1.40-6.50); Neutrophils % (auto) 78.2 %; Platelet Count 355 K/uL (130-400); RDW Coefficient of Variation 14.1 % (11.5-14.5); RDW Standard Deviation 43.5 fL (36.4-46.3); Red Blood Count 3.45 M/uL (4.20-5.40); White Blood Count 14.93 K/ul (4.8-10.8)
[2023-08-29 06:47] LABS: Albumin Globulin Ratio 1.2 (0.9-2); Albumin Level 2.7 gm/dl (3.4-5.0); BUN Creatinine Ratio 27.3 (10-20); Bilirubin,Total 0.7 mg/dl (0.2-1.0); Calcium 8.6 mg/dl (8.6-10.3); Creatinine Clr Calc Pharmacy 90.9 ml/min; Est GFR (African American) 105.2 ml/min; Est GFR (Non-African American) 90.8 ml/min; Globulin 2.3 gm/dl (2.5-4.0); Magnesium 1.7 mg/dl (1.7-2.4); Potassium 3.5 mmol/L (3.5-5.1)
--- NOTE | 2023-08-29 07:15 | Hospitalist Progress Note ---
Date of Service August 29, 2023 Assessment & Plan (1) Goals of care, counseling/discussion: Plan: - Concern for worsening cancer vs radiation injury - low PO intake past few months, does not want feeding tube. Will continue with IVF pending further clarity on cancer prognosis - she does not wish to pursue and further radiation treatments - If further clarity needed for staging of cancer, would consider further imaging -records from [facility] oncology requested, pending - [facility] when appropriate (2) Throat cancer: Plan: - s/p one year of Keytruda, recently completed course of radiation - worsening post-radiation, pt wishes to transition to hospice - scheduled IV Tylenol, Toradol, morphine for breakthrough pain, cannot tolerate liquid ibuprofen - add magic mouthwash and Carafate (3) Leukocytosis: Plan: Severe leukocytosis of 34.5 with left shift. No respiratory symptoms, does have increased erythema postradiation has been on steroids however this seems disproportionate for this and is with left shift Patient does have diarrhea and a tender abdomen, declines a CTA/P and CT of the neck. Is okay with PCR testing. Notes she would not surgery/drainage or interventions even if abnormalities were noted (see above). Denies fever/chills/sweats -PCR testing --> If c diff positive tx milagroso (4) Dehydration: Plan: - Plan to continue IVF pending further clarity with cancer staging Plan DVT: Deferred Diet: Pt does not wish to eat/drink due to pain at this time. Clears as tolerated CODE: DNR/DNI. If worsening --> LEGAL EXECUTIVE Admission and Anticipated Discharge Date Admission Date: August 28, 2023 Supervising Physician Co-Signing Physician Notes I personally examined the patient and verified all kinney points of history and exam, discussed case, and agree with decision making with Dr Mckeon tried to see several times today - in the bathroom, later sleeping. d/w dr mckeon. reviewed records. d/w radiation oncology and medical oncology at [facility] - docs were unavailable, nurse navigator knows her well and noted that her care was purely palliative from the start even with the keytruda, pt has been getting progressively more malnourished, and she did agree in her clinical assessment of the patient that a hospice plan would likely be the most reasonable course of action Dysphagia, acute on chronic pain, head neck canceroverall appears her prognosis is quite poorher dysphagia is likely either from the cancer itself, radiation injury, or bothbut it sounds like she also has not been able to eat or drink very well since around Thanksgiving according to her familymeaning that she is likely so far behind with acute protein calorie malnutrition already that her deconditioning and malnutrition are likely as much a threat to her wellbeing as the cancer itself, and given that either the cancer itself or radiation injury affecting more dysphagia are likely to not improve very much in the near future, and given that she really does not want a PEG tube unfortunately overall it s eems from multiple angles both individually and simultaneously, her prognosis is quite poor. pain control. probably will need IV pain control on hospice given dysphagia and throat pain. otherwise as above Subjective Patient seen at bedside, calm comfortable cooperative. States she is able to swallow small amounts of fluid, however mouth is dry. Patient unable to swallow pills. States magic mouthwash helped with throat pain somewhat. Otherwise pain under control at this time. Physical Exam Physical Exam: Constitutional: well-appearing, no acute distress HEENT: NCAT, no conjunctival injection, erythema/irritation left side of neck CV: regular rhythm, no murmur appreciated, extremities well-perfused, no LE edema Resp: CTABL, no wheezes/rales/rhonchi appreciated, no increased work of breathing MSK: no gross deformities appreciated Skin: warm, dry, no rash appreciated Neuro: alert, oriented, no focal neurologic deficit appreciated Results & Data Results & Data Vital Signs (Past 12 Hours) Vital Signs Temp Pulse Resp BP Pulse Ox O2 Del Method 08/29/23 04:55 37.1 C 61 14 117/71 96 Room Air 08/29/23 00:01 37.0 C 76 18 134/75 94 Room Air 08/28/23 20:58 37.3 C 73 14 147/77 H 96 Room Air Resident Activity Tracking Resident Involvement: Resident Care Provided Care Provided: Adult Hospital Medicine
[2023-08-29] MEDS: CHOLECALCIFEROL 25 MCG (1000 UNITS) TAB PO SCH (07:48)
[2023-08-29] MEDS ORDERED: LIDOCAINE VISCOUS 2% 15 ML UDC MT PRN (08:47)
[2023-08-29] MEDS: IBUPROFEN 200 MG/10 ML UDC PO ONE (11:45)
[2023-08-29] MEDS: MoRPHine SULFATE 4 MG/ML 1 ML CARP\\VIAL IV PRN (13:43)
--- NOTE | 2023-08-29 18:02 | Billing Data ---
Date of Service August 29, 2023 Coding Level of Care Code 93877 SUB INP/OBS CARE
--- NOTE | 2023-08-30 08:55 | Hospitalist Progress Note ---
Date of Service August 30, 2023 Assessment & Plan (1) Goals of care, counseling/discussion: Plan: -Admitted with concern for worsening cancer vs radiation injury -Pt remains malnourished with failure to thrive secondary to progressive decline of oral intake over past few months and does not want feeding tube -Continue mIVF for now -Pt declines any further radiation treatments for cancer -[facility] oncology records requested, pending -Tentatively planned for discharge to [facility] with hospice on 09/01 (2) Throat cancer: Plan: -S/p one year of Keytruda, recently completed course of radiation -Worsening throat pain s/p radiation -Pt wishes to transition to hospice, discharge to [facility] as above -Pain control- scheduled IV Tylenol, scheduled Toradol, scheduled morphine, magic mouthwash -Morphine 4 mg IV q3h PRN switched to scheduled as pt is taking regularly -Discontinued sucralfate as pt is not tolerating by mouth (3) Leukocytosis: Plan: -Severe WBC 34.5 with leftward shift on admission, improving to 15 as of 08/29 -Pt does not report any infectious symptoms, this WBC elevation is likely secondary to her malignant process w/ some contribution from previous steroid administration -GI PCR ordered, uncollected as of present -Deferring further monitoring given plan for hospice on discharge (4) Dehydration: Plan: -Continue mIVF Plan DVT: Deferred Diet: Clear liquids, advance as tolerated CODE: DNR/DNI. If worsening --> INTERNAL COMBUSTION ENGINE INSPECTOR Admission and Anticipated Discharge Date Admission Date: August 28, 2023 Supervising Physician Co-Signing Physician Notes I personally examined the patient and verified all kinney points of history and exam, discussed case, and agree with decision making with Dr Martin pain better controlled. discussed plan for IV meds for hospice given neck cancer. IV fluids to continue for now given that she is still alert enough to feel thirst but unable to drink enough to placate her thirst given the cancer vitals noted nad heent nc at mmmm breathing unlabored no accessory muscles good effort Dysphagia, acute on chronic pain, head neck canceroverall appears her prognosis is quite poorher dysphagia is likely either from the cancer itself, radiation injury, or bothbut it sounds like she also has not been able to eat or drink very well since around Thanksgiving according to her familymeaning that she is likely so far behind with acute protein calorie malnutrition already that her deconditioning and malnutrition are likely as much a threat to her wellbeing as the cancer itself, and given that either the cancer itself or radiation injury affecting more dysphagia are likely to not improve very much in the near future, and given that she really does not want a PEG tube unfortunately overall it seems from multiple angles both individually and simultaneously, her prognosis is quite poor. pain control. probably will need IV pain control on hospice given dysphagia and throat pain. otherwise as above Subjective Acute events overnight- none. Pt examined at bedside. Reports her pain is well-controlled with current regimen. Review of Systems Review of Systems: As per above Physical Exam Physical Exam: Constitutional: well-appearing, no acute distress HEENT: NCAT, no conjunctival injection, erythema of left side of neck without ecchymoses or swelling CV: regular rhythm, no murmur appreciated, extremities well-perfused, no LE edema Resp: CTABL, no wheezes/rales/rhonchi appreciated, no increased work of breathing MSK: no gross deformities appreciated Skin: warm, dry, no rash appreciated Neuro: alert, oriented, no focal neurologic deficit appreciated Results & Data Results & Data Vital Signs (Past 12 Hours) Vital Signs Temp Pulse Resp BP Pulse Ox O2 Del Method 08/30/23 08:38 Room Air 08/30/23 08:19 36.6 C 66 16 161/76 H 94 Room Air Resident Activity Tracking Resident Involvement: Resident Care Provided Care Provided: Adult Hospital Medicine
[2023-08-30] MEDS: MoRPHine SULFATE 4 MG/ML 1 ML CARP\\VIAL IV SCH (12:45)
[2023-08-30] MEDS: MoRPHine SULFATE 4 MG/ML 1 ML CARP\\VIAL IV PRN (14:17)
[2023-08-30] MEDS: LACTATED RINGER'S 1,000 ML IV SCH (14:17)
--- NOTE | 2023-08-30 15:56 | Billing Data ---
Date of Service August 30, 2023 Coding Level of Care Code 29154 SUB INP/OBS CARE
[2023-08-31] MEDS ORDERED: ACETAMINOPHEN 1,000 MG/100 ML VIAL IV SCH (08:00)
[2023-08-31] MEDS ORDERED: Nursing to Pharmacy Communication SCH (08:30)
[2023-08-31] MEDS: ACETAMINOPHEN 1,000 MG/100 ML VIAL IV SCH (08:54)
--- NOTE | 2023-08-31 09:15 | Hospitalist Progress Note ---
Date of Service August 31, 2023 Assessment & Plan (1) Goals of care, counseling/discussion: Plan: -Admitted with concern for worsening cancer vs radiation injury -Pt remains malnourished with failure to thrive secondary to progressive decline of oral intake over past few months and does not want feeding tube -Continue mIVF for now -Pt declines any further radiation treatments for cancer -[facility] oncology records requested, pending -Tentatively planned for discharge to [facility] with hospice on 09/01 (2) Throat cancer: Plan: -S/p one year of Keytruda, recently completed course of radiation -Worsening throat pain s/p radiation -Pt wishes to transition to hospice, discharge to [facility] as above -Pain control- scheduled IV Tylenol, scheduled Toradol, PRN morphine, magic mouthwash (3) Leukocytosis: Plan: -Severe WBC 34.5 with leftward shift on admission, improving to 15 as of 08/29 -Pt does not report any infectious symptoms, this WBC elevation is likely secondary to her malignant process w/ some contribution from previous steroid administration -GI PCR ordered, uncollected as of present -Deferring further monitoring given plan for hospice on discharge (4) Dehydration: Plan: -Continue mIVF Plan DVT: Deferred Diet: Clear liquids, advance as tolerated CODE: DNR/DNI. 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 would like off IV fluids at times through the day vitals noted nad heent nc at mmmm breathing unlabored no accessory muscles good effort Dysphagia, acute on chronic pain, head neck canceroverall appears her prognosis is quite poorher dysphagia is likely either from the cancer itself, radiation injury, or bothbut it sounds like she also has not been able to eat or drink very well since around Thanksgiving according to her familymeaning that she is likely so far behind with acute protein calorie malnutrition already that her deconditioning and malnutrition are likely as much a threat to her wellbeing as the cancer itself, and given that either the cancer itself or radiation injury affecting more dysphagia are likely to not improve very much in the near future, and given that she really does not want a PEG tube unfortunately overall it seems from multiple angles both individually and simultaneously, her prognosis is quite poor. pain control. will need IV pain control on hospice given dysphagia and throat pain. fluids -- increase rate but have run for 14hrs daily to allow 10hrs without needing attached to IV pole. otherwise as above Subjective Acute events overnight- none. Pt examined at bedside, sleeping comfortably and briefly awoken for exam. Reports her pain is well-controlled with current regimen. Review of Systems Review of Systems: As per above Physical Exam Physical Exam: Constitutional: sleepy-appearing, no acute distress HEENT: NCAT, no conjunctival injection, erythema of left side of neck without ecchymoses or swelling CV: regular rhythm, no murmur appreciated Resp: CTABL, no wheezes/rales/rhonchi appreciated, no increased work of breathing Skin: warm, dry, no rash appreciated Results & Data Results & Data Vital Signs (Past 12 Hours) Vital Signs Temp Pulse Resp BP Pulse Ox O2 Del Method 08/31/23 07:28 36.8 C 76 16 160/72 H 93 Room Air 08/30/23 22:18 36.9 C 75 14 149/76 H 95 Room Air
--- NOTE | 2023-08-31 14:45 | Billing Data ---
Date of Service August 31, 2023 Coding Level of Care Code 10318 SUB INP/OBS CARE
[2023-08-31] MEDS: [UNRECOGNIZED DRUG - REMARK] SCH (21:04)
[2023-09-01] MEDS: LACTATED RINGER'S 1,000 ML IV SCH (06:50)
--- NOTE | 2023-09-01 07:55 | Hospitalist Progress Note ---
Date of Service September 01, 2023 Assessment & Plan (1) Goals of care, counseling/discussion: Plan: -Admitted with concern for worsening cancer vs radiation injury -Pt remains malnourished with failure to thrive secondary to progressive decline of oral intake over past few months and does not want feeding tube -Continue mIVF for now -Pt declines any further radiation treatments for cancer -[facility] oncology records requested, pending -Plan for d/c with hospice Tentatively planned for discharge to [facility] if private room is available and [facility] (2) Throat cancer: Plan: -S/p one year of Keytruda, recently completed course of radiation -Worsening throat pain s/p radiation -Pt wishes to transition to hospice, discharge to [facility] as above -Pain control- scheduled IV Tylenol, scheduled Toradol, PRN morphine, magic mouthwash - Will likely need d/c on [employer] for pain control (3) Leukocytosis: Plan: -Severe WBC 34.5 with leftward shift on admission, improving to 15 as of / -Pt does not report any infectious symptoms, this WBC elevation is likely secondary to her malignant process w/ some contribution from previous steroid administration -GI PCR ordered, uncollected as of present -Deferring further monitoring given plan for hospice on discharge (4) Dehydration: Plan: -Continue mIVF Plan DVT: Deferred Diet: Clear liquids, advance as tolerated CODE: DNR/DNI. 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 pain better controlled. no new concerns. vitals noted nad heent nc at mmmm breathing unlabored no accessory muscles good effort Dysphagia, acute on chronic pain, head neck cancer overall appears her prognosis is quite poorher dysphagia is likely either from the cancer itself, radiation injury, or both not been able to eat or drink very well since Thanksgiving per family. with poor prognosis d/t cancer - not a candidate for PEG. -continue pain control with IV pain meds given dysphagia and throat pain. -fluids -- continue increased rate to run for 14hrs daily to allow 10hrs without needing attached to IV pole. otherwise as above Subjective Pt seen at bedside this morning. Denies acute pain. States that current dose of morphine is working well. Review of Systems Review of Systems: As per above Physical Exam Physical Exam: Constitutional: well-appearing, no acute distress HEENT: NCAT, no conjunctival injection, erythema/irritation left side of neck CV: extremities well-perfused Resp: no increased work of breathing MSK: no gross deformities appreciated Skin: warm, dry, no rash appreciated Neuro: alert, oriented, no focal neurologic deficit appreciated Results & Data Results & Data Vital Signs (Past 12 Hours) Vital Signs Temp Pulse Pulse Resp BP BP Pulse Ox 09/01/23 07:32 36.4 C L 77 14 174/79 H 95 09/01/23 01:14 82 95 08/31/23 21:04 08/31/23 21:04 08/31/23 20:50 36.8 C 76 16 160/73 H 91 Pulse Ox O2 Del Method O2 Del Method 09/01/23 07:32 Room Air 09/01/23 01:14 Room Air 08/31/23 21:04 91 Room Air 08/31/23 21:04 Room Air 08/31/23 20:50 Room Air Resident Activity Tracking Resident Involvement: Resident Care Provided Care Provided: Adult Hospital Medicine
--- NOTE | 2023-09-02 10:24 | Hospitalist Progress Note ---
Date of Service September 02, 2023 Assessment & Plan (1) Goals of care, counseling/discussion: Plan: -Admitted with concern for worsening cancer vs radiation injury -Pt remains malnourished with failure to thrive secondary to progressive decline of oral intake over past few months and does not want feeding tube -Continue mIVF for now -Pt declines any further radiation treatments for cancer -[facility] oncology records requested, pending -Plan for d/c with hospice Tentatively planned for discharge to [facility] if private room is available and [facility] (2) Throat cancer: Plan: -S/p one year of Keytruda, recently completed course of radiation -Worsening throat pain s/p radiation -Pt wishes to transition to hospice, discharge to [facility] as above -Pain control- - issues with hospice accepting with IV pain medications, will trial fentanyl patch, could consider fentanyl lozenge for breakthrough - continue magic mouthwash - Will likely need d/c on [employer] for pain control (3) Leukocytosis: Plan: -Severe WBC 34.5 with leftward shift on admission, improving to 15 as of 2/2 -Pt does not report any infectious symptoms, this WBC elevation is likely secondary to her malignant process w/ some contribution from previous steroid administration -GI PCR ordered, uncollected as of present -Deferring further monitoring given plan for hospice on discharge (4) Dehydration: Plan: -Continue mIVF Plan DVT: Deferred Diet: Clear liquids, advance as tolerated CODE: DNR/DNI. 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 sleeping this morning. awake in the afternoon - pain well controlled. family at bedside. vitals noted nad heent nc at mmmm breathing unlabored no accessory muscles good effort Dysphagia, acute on chronic pain, head neck cancer Poor prognosis dysphagia from cancer itself and radiation injury not been able to eat or drink very well since Thanksgiving per family. with poor prognosis d/t cancer - not a candidate for PEG. -continue pain control - considering that IV pain medication may not be an option on discharge - trial transition to fentanyl patch. continue prn IV morphine during this transition. -fluids -- continue increased rate to run for 14hrs daily to allow 10hrs without needing attached to IV pole. otherwise as above Subjective Pt doing well this morning. Pain well controlled with current regimen. Notes that her mouth is dry. Review of Systems Review of Systems: As per above Physical Exam Physical Exam: Constitutional: well-appearing, no acute distress HEENT: NCAT, no conjunctival injection, erythema/irritation left side of neck CV: extremities well-perfused Resp: no increased work of breathing MSK: no gross deformities appreciated Skin: warm, dry, no rash appreciated Neuro: alert, oriented, no focal neurologic deficit appreciated Results & Data Results & Data Vital Signs (Past 12 Hours) Vital Signs Temp Pulse Resp BP Pulse Ox O2 Del Method 09/02/23 08:00 Room Air 09/02/23 07:16 36.5 C 79 16 161/80 H 96 Room Air Resident Activity Tracking Resident Involvement: Resident Care Provided Care Provided: Adult Hospital Medicine
[2023-09-02] MEDS ORDERED: MoRPHine SULFATE 2 MG/ML CARP IV PRN (15:36)
[2023-09-02] MEDS: fentaNYL 12 MCG/HR TDSY TD SCH (16:20)
[2023-09-02] MEDS: CHECK fentaNYL PATCH PLACEMENT SCH (16:22)
[2023-09-03] MEDS: LACTATED RINGER'S 1,000 ML IV SCH (06:56)
[2023-09-03] MEDS: MoRPHine SULFATE 10 MG/0.5 ML UDP PO PRN ×2 (10:37→15:35)
[2023-09-03] MEDS ORDERED: POLYETHYLENE (MIRALAX) 17 GM PACK PO PRN (11:24)
[2023-09-03] MEDS: fentaNYL 25 MCG/HR TDSY TD SCH (14:16)
[2023-09-03] MEDS: CHECK fentaNYL PATCH PLACEMENT SCH (14:19)
--- NOTE | 2023-09-03 15:13 | Hospitalist Progress Note ---
Date of Service September 03, 2023 Assessment & Plan (1) Goals of care, counseling/discussion: Plan: -Admitted with concern for worsening cancer vs radiation injury -Pt remains malnourished with failure to thrive secondary to progressive decline of oral intake over past few months and does not want feeding tube -Continue mIVF for now -Pt declines any further radiation treatments for cancer -Plan for d/c with hospice Tentatively planned for discharge to [facility] if private room is available and [facility] (2) Throat cancer: Plan: -S/p one year of Keytruda, recently completed course of radiation -Worsening throat pain s/p radiation -Pt wishes to transition to hospice, discharge to [facility] as above -Pain control- - issues with hospice accepting with IV pain medications, increase fentanyl patch to 25 mcg with liquid morphine for breakthrough - continue magic mouthwash - repeat CT w/ constant neck and maxillofacial ordered (3) Leukocytosis: Plan: -Severe WBC 34.5 with leftward shift on admission, improving to 15 as of 2/2 -Pt does not report any infectious symptoms, this WBC elevation is likely secondary to her malignant process w/ some contribution from previous steroid administration -Deferring further monitoring given plan for hospice on discharge (4) Dehydration: Plan: -Continue mIVF Plan DVT: Deferred Diet: Clear liquids, advance as tolerated CODE: DNR/DNI. 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 awake this am - was coming out of restroom independently. was upset that she didn't sleep at all last night. didn't think her pain was the problem. thinks that fentanyl caused her to not be able to sleep. later in the day per nursing reported patient having worsening pain and wanted the pain medications switched back to IV form vitals noted nad heent nc at mmmm breathing unlabored no accessory muscles good effort Dysphagia, acute on chronic pain, head neck cancer Poor prognosis dysphagia from cancer itself and radiation injury not been able to eat or drink very well since Thanksgiving per family. with poor prognosis d/t cancer - not a candidate for PEG. -continue pain control - trialed fentanyl patch and oral morphine solution - didn't help. will transition back to IV pain meds with plan for her to be home on [employer] pump. -fluids -- continue increased rate to run for 14hrs daily to allow 10hrs without needing attached to IV pole. otherwise as above Subjective Pt notes that she feels her pain is not as well controlled with current pain regimen Also expresses want to have repeat imaging to see status of size of tumor. Review of Systems Review of Systems: As per above Physical Exam Physical Exam: Constitutional: well-appearing, no acute distress HEENT: NCAT, no conjunctival injection, erythema/irritation left side of neck CV: extremities well-perfused Resp: no increased work of breathing MSK: no gross deformities appreciated Skin: warm, dry, no rash appreciated Neuro: alert, oriented, no focal neurologic deficit appreciated Results & Data Results & Data Vital Signs (Past 12 Hours) Vital Signs Temp Pulse Resp BP Pulse Ox O2 Del Method 09/03/23 14:12 37.0 C 81 16 149/84 H 97 Room Air 09/03/23 10:30 Room Air 09/03/23 07:49 37.0 C 77 16 152/82 H 95 Room Air Resident Activity Tracking Resident Involvement: Resident Care Provided Care Provided: Adult Hospital Medicine
[2023-09-03] MEDS: OPTIRAY 320 500ml IV ONE (16:01)
--- NOTE | 2023-09-03 16:31 | CT Scan Report ---
CT soft tissue neck w con CT DOSE: CLINICAL HISTORY: Throat Cancer . Left-sided neck mass. TECHNIQUE: Multiaxial CT images of the neck were performed following the intravenous administration o f 90 cc of Optiray 320 and reformatted in the sagittal and coronal plane. A dose lowering technique was utilized adhering to the principles of ALARA. COMPARISON STUDY: None. FINDINGS: There is a heterogeneous infiltrative mass within the left side of the neck centered at the level of the cricoid cartilage which obliterates the majority of the left sternocleidomastoid muscle and measures approximately 7.8 x 5.2 x 4.0 cm. This mass partially encases the left common carotid a rtery without significant narrowing. This mass extends to the skin surface of the left side the neck and likely accounts for the skin thickening at this location. This mass appears to track along the pr oximal aspect of the left sternocleidomastoid muscle up to the C1 level on image 110. There are few h eterogeneous enhancing and mildly enlarged left cervical lymph nodes consistent with metastatic disea se. Dominant left necrotic cervical lymph node on image 204 measures 12 mm. This mass abuts but does not clearly invade into the left submandibular gland and inferior left parotid gland. No right-sided cervical lymphadenopathy. The left internal jugular vein is not identified and is likely obliterated by this left neck mass. The right cervical vessels are patent. The orbits and visualized brain parenc hyma are unremarkable. Anterior cervical discectomy within the lower cervical spine. The paranasal si nuses and mastoid air cells are clear. No suspicious lytic or blastic osseous lesions. The lung apice s will be reported on the same day chest CT. Partially visualized left PICC is noted. Prevertebral so ft tissues are intact. IMPRESSION: 1. An infiltrative 7.8 x 5.2 x 4.0 cm heterogeneous mass which obliterates the majority the left ster nocleidomastoid muscle as described above. This could represent metastatic disease or a primary head and neck cancer. 2. Multiple mildly enlarged and necrotic left cervical lymph nodes consistent with metastatic disease . ACT 112: Negative or not required by law. Electronically signed by: Greg Rockwell M.D. 09/03/2023 4:30 PM
[2023-09-03] MEDS: MoRPHine SULFATE 2 MG/ML CARP IV PRN (16:34)
--- NOTE | 2023-09-03 16:40 | CT Scan Report ---
CT facial bones w con HISTORY: 87 years-old Female Throat Cancer follow-up study in patient with history of head and neck carcinoma COMPARISON: Soft tissue neck CT of same day TECHNIQUE: Multiple axial CT images of the facial bones were obtained with IV contrast. A dose loweri ng technique was used consistent with the principals of JAH. FINDINGS: The imaged intracranial structures demonstrate no acute abnormality. Involutional changes with chroni c microvascular ischemic disease. Partially imaged large infiltrative left neck mass with invasion in to the sternocleidomastoid muscle. There are adjacent centrally necrotic lymph nodes within the left neck measuring up to 1.2 x 1.0 cm. The left internal jugular vein is effaced by this mass. Atheroscle rosis of the carotid bulbs. Prior bilateral lens repair. Degenerative The spine. Small left mastoid effusion. The right mastoid air cells and paranasal sinuses are relativ kev clear. Numerous missing teeth. Degenerative changes of the temporal mandibular joints. IMPRESSION: 1. Partially imaged infiltrative malignant left neck mass is better seen on the CT soft tissue neck s tudy of same day. This mass involves the sternocleidomastoid muscle and effaces the left internal jug ular vein. 2. Metastatic left cervical chain lymphadenopathy. 3. No evidence of osseous metastasis. ACT 112: Negative or not required by law. The above report was generated using voice recognition software. It may contain grammatical, syntax o r spelling errors. Electronically signed by: Romulo Land M.D. 09/03/2023 4:38 PM
[2023-09-03] MEDS: MoRPHine SULFATE 2 MG/ML CARP IV STA (17:16)
[2023-09-03] MEDS: MoRPHine SULFATE 4 MG/ML 1 ML CARP\\VIAL IV PRN (21:20)
[2023-09-04] MEDS: diphenhydrAMINE 2%/ZINC 0.1% CREAM 28.4GM TUBE EXT PRN (11:54)
[2023-09-04] MEDS ORDERED: NALOXONE HCL 0.4 MG/1 ML VIAL/CARP IV PRN (13:35)
[2023-09-04] MEDS: HYDROCORTISONE 2.5% CR 30 GM TUBE EXT PRN (13:38)
--- NOTE | 2023-09-04 13:44 | Hospitalist Progress Note ---
Date of Service September 04, 2023 Assessment & Plan (1) Goals of care, counseling/discussion: Plan: -Admitted with concern for worsening cancer vs radiation injury -Pt remains malnourished with failure to thrive secondary to progressive decline of oral intake over past few months and does not want feeding tube -Continue mIVF for now -Pt declines any further radiation treatments for cancer -Plan for d/c with hospice to son's house (2) Throat cancer: Plan: -S/p one year of Keytruda, recently completed course of radiation -Worsening throat pain s/p radiation -Pt wishes to transition to hospice -Pain control- - Will switch for 4mg IV Morphine q3 to SWATCH PASTER; morphine 1mg [id number] with plans to adjust as needed - continue magic mouthwash - repeat CT demonstrates infiltrative 7.8 x 5.2 x 4.0 cm heterogeneous mass which obliterates the majority the left sternocleidomastoid muscle, Multiple mildly enlarged and necrotic left cervical lymph nodes consistent with metastatic disease (3) Leukocytosis: Plan: -Severe WBC 34.5 with leftward shift on admission, improving to 15 as of 2/2 -Pt does not report any infectious symptoms, this WBC elevation is likely secondary to her malignant process w/ some contribution from previous steroid administration -Deferring further monitoring given plan for hospice on discharge (4) Dehydration: Plan: -Continue mIVF Admission and Anticipated Discharge Date Admission Date: August 28, 2023 Supervising Physician Co-Signing Physician Notes Attending Physician Supervision Note: I independently interviewed and examined the patient and verified the kinney history and physical, reviewed labs and image studies and agree with findings and care plan noted above. resting in bed comfortably this morning and her pain is well controlled on IV morphine. Reported itching in and around the lump in left neck. vitals noted nad heent nc at mmmm breathing unlabored no accessory muscles good effort Dysphagia, acute on chronic pain, head neck cancer Poor prognosis dysphagia from cancer itself and radiation injury not been able to eat or drink very well since Thanksgiving per family. with poor prognosis d/t cancer - not a candidate for PEG. -continue pain control - failed oral and topical pain regimen. plan to d/c home with hospice on IV pain meds - transitioning to SWATCH PASTER pump. -fluids -- continue increased rate to run for 14hrs daily to allow 10hrs without needing attached to IV pole. otherwise as above Subjective Pain is well controlled this morning. Discuss CT scan from yesterday evening. Notes some itching left side of neck. Review of Systems Review of Systems: As per above Physical Exam Physical Exam: Constitutional: well-appearing, no acute distress HEENT: NCAT, no conjunctival injection, erythema/irritation left side of neck CV: extremities well-perfused Resp: no increased work of breathing MSK: no gross deformities appreciated Skin: warm, dry, no rash appreciated Neuro: alert, oriented, no focal neurologic deficit appreciated Results & Data Results & Data Vital Signs (Past 12 Hours) Vital Signs Temp Pulse Resp BP Pulse Ox O2 Del Method 09/04/23 10:50 Room Air 09/04/23 09:12 36.7 C 77 16 169/84 H 95 Room Air Resident Activity Tracking Resident Involvement: Resident Care Provided Care Provided: Adult Hospital Medicine
[2023-09-04] MEDS: MoRPHine SULFATE PCA 30 MG/30 ML IV PRN (16:18)
[2023-09-04] MEDS: SODIUM CHLORIDE 0.9% 1,000 ML IV SCH (21:29)
[2023-09-04] MEDS: HYDROCORTISONE 2.5% CR 30 GM TUBE EXT SCH (21:36)
[2023-09-05] MEDS: MoRPHine SULFATE 2 MG/ML CARP IV STA (12:51)
[2023-09-05] MEDS: SODIUM CHLORIDE 0.9% 1,000 ML IV SCH (13:14)
--- NOTE | 2023-09-05 14:27 | Hospitalist Progress Note ---
Date of Service September 05, 2023 Assessment & Plan (1) Goals of care, counseling/discussion: Plan: -Admitted with concern for worsening cancer vs radiation injury -Pt remains malnourished with failure to thrive secondary to progressive decline of oral intake over past few months and does not want feeding tube -given her decreased fluid intake is 2/2 inability to swallow rather than lack of thirst or loss of consciousness, and patient states she wants ongoing hydration, will continue IVF at NSS 80mls/h 1L daily during daylight hours for now. -Pt declines any further radiation treatments for cancer -Plan for d/c with hospice to son's house, currently pending BANK SALES [employer] SERVICE MANAGER setup. (2) Throat cancer: Plan: -S/p one year of Keytruda, recently completed course of radiation -Worsening throat pain s/p radiation -Pt wishes to transition to hospice -Pain control- BANK SALES AND SERVICE MANAGER; morphine 2mg [id number] with plans to adjust as needed - continue magic mouthwash - repeat CT demonstrates infiltrative 7.8 x 5.2 x 4.0 cm heterogeneous mass which obliterates the majority the left sternocleidomastoid muscle, Multiple mildly enlarged and necrotic left cervical lymph nodes consistent with metastatic disease (3) Leukocytosis: Plan: -Severe WBC 34.5 with leftward shift on admission, improving to 15 as of 2/2 -Pt does not report any infectious symptoms, this WBC elevation is likely secondary to her malignant process w/ some contribution from previous steroid administration -Deferring further monitoring given plan for hospice on discharge (4) Dehydration: Plan: -Continue mIVF Admission and Anticipated Discharge Date Admission Date: August 28, 2023 Supervising Physician Co-Signing Physician Notes Attending Physician Supervision Note: I independently interviewed and examined the patient and verified the kinney history and physical, reviewed labs and image studies and agree with findings and care plan noted above. no new concerns. comfortable in bed. strolling youtube 'shorts' on her phone. vitals noted nad heent nc at mmmm breathing unlabored no accessory muscles good effort Dysphagia, acute on chronic pain, head neck cancer Poor prognosis dysphagia from cancer itself and radiation injury not been able to eat or drink very well since Thanksgiving per family. with poor prognosis d/t cancer - not a candidate for PEG. Now on comfort care. -continue pain control - failed oral and topical pain regimen. plan to d/c home with hospice on BANK SALES AND SERVICE MANAGER pump. Awaiting arrangement of BANK SALES AND SERVICE MANAGER at home. -fluids -- continue increased rate to run for 14hrs daily to allow 10hrs without needing attached to IV pole. otherwise as above Subjective Patient seen at bedside, calm comfortable cooperative. States she did not sleep well last night, needed to use the bathroom too often, wants her fluids to be slowed down. Patient states she cannot recall using the fentanyl patch, states the BANK SALES AND SERVICE MANAGER pump is working well to control her pain. Otherwise denies nausea/vomitting/SOB/headache. Patient would like to try lemonade on the mouth sponge. Physical Exam Physical Exam: Constitutional: well-appearing, no acute distress HEENT: NCAT, no conjunctival injection, erythema/irritation left side of neck CV: extremities well-perfused Resp: no increased work of breathing MSK: no gross deformities appreciated Skin: warm, dry, no rash appreciated Neuro: alert, oriented, no focal neurologic deficit appreciated Results & Data Results & Data Vital Signs (Past 12 Hours) Vital Signs Temp Pulse Resp BP BP Pulse Ox O2 Del Method 09/05/23 09:18 Room Air 09/05/23 07:20 36.7 C 71 14 162/76 H 94 Nasal Cannula 09/05/23 04:09 37.0 C 71 16 159/80 H 95 Room Air O2 Flow Rate 09/05/23 09:18 09/05/23 07:20 3 09/05/23 04:09 Resident Activity Tracking Resident Involvement: Resident Care Provided Care Provided: Adult Hospital Medicine
--- NOTE | 2023-09-06 06:42 | Hospitalist Progress Note ---
Date of Service September 06, 2023 Assessment & Plan (1) Goals of care, counseling/discussion: Plan: 87 year old female w/ history of head and neck cancer resulting in dysphagia on hospice with [employer] pump. Goals of care: -Admitted with concern for worsening cancer vs radiation injury -Failure to thrive past few months, does not want feeding tube. -On IV hydration due to inability to swallow, IVF NSS@80ml/hr 1L daily in hospital. -Pt declines any further radiation treatments for cancer -Plan for d/c with hospice to son's house, currently pending [employer] setup. Throat Cancer: -S/p one year of Keytruda, recently completed course of radiation -Worsening throat pain s/p radiation -Pt wishes to transition to hospice -Pain control- [employer]; morphine 2mg [id number] with plans to adjust as needed -continue magic mouthwash -Repeat CT demonstrates infiltrative mass obliterates L SCM, multiple mildly enlarged, necrotic L cervical lymph nodes consistent with metastatic disease. Leukocytosis: -Severe WBC 34.5 with leftward shift on admission, improving to 15 as of 2/2 -No signs of infection, likely secondary to malignancy and recent steroid use -Deferring further monitoring given plan for hospice on discharge Dehydration: -Secondary to inability to swallow, continue IVF as above. DVT PPx: SCDs Code status: DNR/DNI Dispo: Home hospice when [employer] able to be set up. (2) Throat cancer: (3) Leukocytosis: (4) Dehydration: Admission and Anticipated Discharge Date Admission Date: August 28, 2023 Supervising Physician Co-Signing Physician Notes Attending Physician Supervision Note: I independently interviewed and examined the patient and verified the kinney history and physical, reviewed labs and image studies and agree with findings and care plan noted above. no new concerns. comfortable vitals noted nad heent nc at mmmm breathing unlabored no accessory muscles good effort Dysphagia, acute on chronic pain, head neck cancer Poor prognosis dysphagia from cancer itself and radiation injury not been able to eat or drink very well since Thanksgiving per family. with poor prognosis d/t cancer - not a candidate for PEG. Now on comfort care. -continue pain control - failed oral and topical pain regimen. plan to d/c home with hospice on [employer] pump. Awaiting arrangement of [employer] at home. -fluids -- continue increased rate to run for 14hrs daily to allow 10hrs without needing attached to IV pole. otherwise as above Subjective Patient sleeping comfortably when entered room, no overnight events. Review of Systems Review of Systems: As per above Physical Exam Constitutional: WD/WN, vitals as above resting comfortably in bed. Respiratory: normal respiratory effort Results & Data Results & Data Vital Signs (Past 12 Hours) Vital Signs Temp Pulse Resp BP Pulse Ox O2 Del Method 09/06/23 02:54 36.7 C 84 18 162/78 H 94 Room Air 09/05/23 23:08 37 C 75 18 134/84 94 Room Air 09/05/23 19:18 37 C 75 16 153/78 H 93 Room Air Resident Activity Tracking Resident Involvement: Resident Care Provided Care Provided: Adult Hospital Medicine
--- NOTE | 2023-09-07 06:35 | Hospitalist Progress Note ---
Date of Service September 07, 2023 Assessment & Plan (1) Goals of care, counseling/discussion: Plan: 87 year old female w/ history of head and neck cancer resulting in dysphagia on hospice with ASSISTANT PROFESSOR OF GERMAN pump. Goals of care: -Admitted with concern for worsening cancer vs radiation injury -Failure to thrive past few months, does not want feeding tube. -On IV hydration due to inability to swallow, IVF NSS@80ml/hr 1L daily in hospital. -Pt declines any further radiation treatments for cancer -Plan for d/c with hospice to son's house, currently pending ASSISTANT PROFESSOR [employer]ER[employer] setup. Throat Cancer: -S/p one year of Keytruda, recently completed course of radiation -Worsening throat pain s/p radiation -Pt wishes to transition to hospice -Pain control- ASSISTANT [employer]; morphine 2mg [id number] with plans to adjust as needed -continue magic mouthwash -Repeat CT demonstrates infiltrative mass obliterates L SCM, multiple mildly enlarged, necrotic L cervical lymph nodes consistent with metastatic disease. Leukocytosis: -Severe WBC 34.5 with leftward shift on admission, improving to 15 as of 2/2 -No signs of infection, likely secondary to malignancy and recent steroid use -Deferring further monitoring given plan for hospice on discharge Dehydration: -Secondary to inability to swallow, continue IVF as above. DVT PPx: SCDs Code status: DNR/DNI Dispo: Home hospice when ASSISTANT PROFESSOR OF [employer] able to be set up. (2) Throat cancer: (3) Leukocytosis: (4) Dehydration: Admission and Anticipated Discharge Date Admission Date: August 28, 2023 Supervising Physician Co-Signing Physician Notes Attending Physician Supervision Note: I independently interviewed and examined the patient and verified the kinney history and physical, reviewed labs and image studies and agree with findings and care plan noted above. no new concerns. comfortable. reports not being able to sleep last night; nursing reported her snoring at night. vitals noted nad heent nc at mmmm breathing unlabored no accessory muscles good effort Dysphagia, acute on chronic pain, head neck cancer Poor prognosis dysphagia from cancer itself and radiation injury not been able to eat or drink very well since Thanksgiving per family. with poor prognosis d/t cancer - not a candidate for PEG. Now on comfort care. -continue pain control - failed oral and topical pain regimen. Now on morphine [employer]IST[employer]. plan to d/c home with hospice on ASSISTANT PROF[employer]OR [employer] pump. Awaiting arrangement of ASSISTANT PROFESSOR OF GER[employer] at home. -fluids -- continue increased rate to run for 14hrs daily to allow 10hrs without needing attached to IV pole. otherwise as above Subjective Patient asleep when entering the room. No overnight events. Review of Systems Review of Systems: As per above Physical Exam Constitutional: WD/WN, vitals as above resting comfortably in bed. Respiratory: normal respiratory effort Results & Data Results & Data Vital Signs (Past 12 Hours) Vital Signs Temp Pulse Resp BP Pulse Ox O2 Del Method 09/06/23 20:55 36.5 C 81 18 168/83 H 95 Room Air Resident Activity Tracking Resident Involvement: Resident Care Provided Care Provided: Adult Hospital Medicine
[2023-09-07] MEDS: HYDROCORTISONE 2.5% CR 30 GM TUBE EXT PRN (22:30)
[2023-09-08] MEDS: diphenhydrAMINE 50 MG/ML VIAL IV STA (00:59)
[2023-09-08] MEDS: diphenhydrAMINE 50 MG/ML VIAL IV PRN (06:48)
--- NOTE | 2023-09-08 07:04 | Hospitalist Progress Note ---
Date of Service September 08, 2023 Assessment & Plan (1) Goals of care, counseling/discussion: Plan: 87 year old female w/ history of head and neck cancer resulting in dysphagia on hospice with [employer] pump. Throat Cancer: Repeat CT demonstrates infiltrative mass obliterates L SCM, multiple mildly enlarged, necrotic L cervical lymph nodes consistent with metastatic disease despite one year of treatment with Keytruda. Worsening throat pain. Goals of care: Patient with minimal utilization of [employer]IVE [employer] pump - 1 mg morphine [id number]. There appears to be some confusion on what pain medications are working. Will likely proceed with family meeting for further discussion of goals of care and next steps with pain control. Unable to find [employer] with dilaudid or morphine. If we are to transition to fentanyl prior to d/c with hospice would need transferred to a monitored unit. Would also strongly consider transitioning to [facility]. Continue to discuss coordination of care with CM, family, and possibly a palliative consult. Declines feeding tube, further radiation/treatment of cancer IVF @ 80mL/hr for comfort as unable to maintain hydration current plant is to d/c to hospice @ son's house continue magic mouthwash [employer] 1 mg morphine Q20 minutes Benadryl/Hydrocortisone as needed for rash Leukocytosis: Noted on admission and trended initially - likely secondary to malignancy and steroid use. Will no longer monitor. DVT PPx: SCDs Code status: DNR/DNI Dispo: Home hospice when [employer] able to be set up. (2) Throat cancer: (3) Leukocytosis: (4) Dehydration: Admission and Anticipated Discharge Date Admission Date: August 28, 2023 Supervising Physician Co-Signing Physician Notes I personally examined the patient and verified all kinney points of history and exam, discussed case, and agree with decision making with Dr Patel Resting comfortably. Working with case management to set up outpatient [employer]. vitals noted nad heent nc at mmmm breathing unlabored no accessory muscles good effort Dysphagia, acute on chronic pain, head neck cancer Poor prognosis dysphagia from cancer itself and radiation injury not been able to eat or drink very well since Thanksgiving per family. with poor prognosis d/t cancer - not a candidate for PEG. Now on comfort care. -continue pain control - failed oral and topical pain regimen. Now on morphine [employer]. plan to d/c home with hospice on [employer] pump. Awaiting arrangement of [employer] at home. This has been unfortunately a bit difficult. -fluids -- continue increased rate to run for 14hrs daily to allow 10hrs without needing attached to IV pole. otherwise as above Subjective Resting comfortably. Awakens to voice. Reports continued pain and difficulty swallowing. States "I think might be dying". Prepared to go home with home hospice. Review of Systems 2 Review of Systems: As per above Physical Exam Physical Exam: Gen: ill appearing and frail appearing patient in NAD HEENT: AT NC MMM Resp: no increased work of breathing CV: clinically well perfused Abd: non-distended MSK: no obvious deformities Skin: no rashes or bruising Neuro: alert and oriented Psych: appropriate mood and affect Results & Data Results & Data Vital Signs (Past 12 Hours) Vital Signs Temp Pulse Resp BP Pulse Ox O2 Del Method 09/08/23 06:52 36.6 C 74 16 167/81 H 94 Room Air 09/07/23 23:19 36.9 C 82 16 150/84 H 95 Room Air Resident Activity Tracking Resident Involvement: Resident Care Provided Care Provided: Adult Hospital Medicine
--- NOTE | 2023-09-08 18:42 | Billing Data ---
Date of Service September 08, 2023 Coding Level of Care Code 87418 SUB INP/OBS CARE
--- NOTE | 2023-09-09 06:37 | Hospitalist Progress Note ---
Date of Service September 09, 2023 Assessment & Plan (1) Goals of care, counseling/discussion: Plan: 87 year old female w/ history of head and neck cancer resulting in dysphagia on hospice with BUSINESS SERVICES ANALYST pump. Throat Cancer: Repeat CT demonstrates infiltrative mass obliterates L SCM, multiple mildly enlarged, necrotic L cervical lymph nodes consistent with metastatic disease despite one year of treatment with Keytruda. Worsening throat pain. Goals of care: Patient with minimal utilization of BUSINESS SERVICES ANALYST pump - 1 mg morphine [id number]. As there is a morphine and dilaudid shortage patient will need fentanyl BUSINESS SERVICES ANALYST. We do not have the ability to do fentanyl BUSINESS SERVICES ANALYST here at [facility]. Patient on SPINNER [employer]INUOUS with plans for discharge to son's home. Will trial fentanyl 10 mcg IV push Q20 minute to ensure adequate pain control prior to discharge. Dr. Garcia approved use of fentanyl on 3E. Nursing comfortable with plan. Declines feeding tube, further radiation/treatment of cancer IVF @ 80mL/hr for comfort as unable to maintain hydration current plant is to d/c to hospice @ son's house continue magic mouthwash 10 mcg fentanyl Q20 minutes Benadryl/Hydrocortisone as needed for rash Leukocytosis: Noted on admission and trended initially - likely secondary to malignancy and steroid use. Will no longer monitor. DVT PPx: SCDs Code status: DNR/DNI Dispo: Home hospice when BUSINESS SERVICES ANALYST able to be set up. (2) Throat cancer: (3) Leukocytosis: (4) Dehydration: Admission and Anticipated Discharge Date Admission Date: August 28, 2023 Supervising Physician Co-Signing Physician Notes I personally examined the patient and verified all kinney points of history and exam, discussed case, and agree with decision making with Dr Patel No complaints of pain. Discussed transitioning pain medicines to what would be consistent with what she could get at home via BUSINESS SERVICES ANALYST. Discussed with business liaison manager as well as case management. vitals noted nad heent nc at mmm breathing unlabored no accessory muscles good effort Dysphagia, acute on chronic pain, head neck cancer Poor prognosis dysphagia from cancer itself and radiation injury not been able to eat or drink very well since Thanksgiving per family. with poor prognosis d/t cancer - not a candidate for PEG. Now on comfort care. -continue pain control - failed oral and topical pain regimen. Working towards home with BUSINESS SERVICES ANALYST -fluids -- continue for now given that she still feels discomfort from thirst otherwise as above Subjective Patient state doing well this morning. Pain well controlled with BUSINESS SERVICES ANALYST. Interested in going home. Review of Systems Review of Systems: As per above Physical Exam Physical Exam: Gen: ill appearing and frail appearing patient in NAD HEENT: AT NC MMM Resp: no increased work of breathing CV: clinically well perfused Abd: non-distended MSK: no obvious deformities Skin: no rashes or bruising Neuro: alert and oriented Psych: appropriate mood and affect Results & Data Results & Data Vital Signs (Past 12 Hours) Vital Signs Temp Pulse Resp BP Pulse Ox O2 Del Method 09/09/23 05:30 36.9 C 71 16 161/83 H 94 Room Air 09/09/23 01:36 37.0 C 76 16 158/84 H 93 Room Air 09/08/23 21:19 36.7 C 73 16 141/80 H 95 Room Air Resident Activity Tracking Resident Involvement: Resident Care Provided Care Provided: Adult Hospital Medicine
[2023-09-09] MEDS ORDERED: fentaNYL citrate PF 100 MCG/2 ML VIAL IV STA (10:29)
[2023-09-09] MEDS ORDERED: NALOXONE HCL 0.4 MG/1 ML VIAL/CARP IV PRN (10:29)
[2023-09-09] MEDS ORDERED: SODIUM CHLORIDE 0.9% 1,000 ML IV SCH (10:30)
[2023-09-09] MEDS: fentaNYL citrate PF 100 MCG/2 ML VIAL IV PRN (14:57)
--- NOTE | 2023-09-09 19:04 | Billing Data ---
Date of Service September 09, 2023 Coding Level of Care Code 13398 SUB INP/OBS CARE
--- NOTE | 2023-09-09 19:04 | Billing Data ---
Date of Service September 09, 2023 Coding Level of Care Code 28364 SUB INP/OBS CARE MIN
--- NOTE | 2023-09-10 14:56 | Hospitalist Progress Note ---
Date of Service September 10, 2023 Assessment & Plan (1) Goals of care, counseling/discussion: Plan: 87 year old female w/ history of head and neck cancer resulting in dysphagia on hospice with MANAGER FINANCIAL SERVICES pump. Throat Cancer: Repeat CT demonstrates infiltrative mass obliterates L SCM, multiple mildly enlarged, necrotic L cervical lymph nodes consistent with metastatic disease despite one year of treatment with Keytruda. Worsening throat pain. Goals of care: Patient with minimal utilization of MANAGER FINANCIAL SERVICES pump - 1 mg morphine [id number]. As there is a morphine and dilaudid shortage patient will need fentanyl [employer]CIAL [employer]. We do not have the ability to do fentanyl [employer]NAGER FINANCIAL SERVICES here at [facility]. Patient on PIECE CUTTER with plans for discharge to son's home. Will trial fentanyl 10 mcg IV push Q20 minute to ensure adequate pain control prior to discharge. Dr. Garcia approved use of fentanyl on 3E. Nursing comfortable with plan. Declines feeding tube, further radiation/treatment of cancer IVF @ 80mL/hr for comfort as unable to maintain hydration current plan is to d/c to hospice @ son's house with fentanyl [employer]CIAL [employer] continue magic mouthwash 10 mcg fentanyl Q20 minutes Benadryl/Hydrocortisone as needed for rash Leukocytosis: Noted on admission and trended initially - likely secondary to malignancy and steroid use. Will no longer monitor. DVT PPx: SCDs Code status: DNR/DNI Dispo: Home hospice when MANAGER FINANCIAL SERVICES able to be set up. (2) Throat cancer: (3) Leukocytosis: (4) Dehydration: Admission and Anticipated Discharge Date Admission Date: August 28, 2023 Supervising Physician Co-Signing Physician Notes I personally examined the patient and verified all kinney points of history and exam, discussed case, and agree with decision making with Dr Patel Pain under reasonable control with fentanyl. Was not able to sleep quite as wellbut Ambien helped. vitals noted nad heent nc at mmm breathing unlabored no accessory muscles good effort Dysphagia, acute on chronic pain, head neck cancer Home hospice and [employer]GER FIN[employer]CIAL SERVICES hopefully tomorrow. otherwise as above Subjective Patient stated doing well this morning. Improvement of symptoms with fentanyl. No new rashes. Review of Systems Review of Systems: As per above Physical Exam Physical Exam: Gen: ill appearing and frail appearing patient in NAD HEENT: AT NC MMM Resp: no increased work of breathing CV: clinically well perfused Abd: non-distended MSK: no obvious deformities Skin: no rashes or bruising Neuro: alert and oriented Psych: appropriate mood and affect Results & Data Results & Data Vital Signs (Past 12 Hours) Vital Signs O2 Del Method 09/10/23 08:00 Room Air Resident Activity Tracking Resident Involvement: Resident Care Provided Care Provided: Adult Hospital Medicine
--- NOTE | 2023-09-10 15:39 | Billing Data ---
Date of Service September 10, 2023 Coding Level of Care Code 03995 SUB INP/OBS CARE
--- NOTE | 2023-09-11 09:17 | Discharge Summary ---
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 intake, neck pain post radiation, and loose bowel movements/diarrhea. Seen at the bedside with her daughter and requests initiation of hospice tomorrow. She expresses that she saw her and another family member go through hospice and has a very good understanding of what hospice entails, the decision to focus on quality of life and comfort rather than curative treatments and extending life, and would like to transition to this as soon as possible. Her daughter is at bedside and notes that they do not have the resources for 24-hour care to care for Paloma at home, but would like to transition to hospice with additional services potentially at [facility]. Patient reports that she had hoped that after radiation her pain and symptoms would improve, but she notes that the burning pain only worsened with radiation and she has not gotten any meaningful relief. She reports her mouth is very dry, and she has pain on her left lip border and her left neck. She has not had fever/chills/sweats, she has had tenderness around the neck worsened since radiation. She no longer wishes to pursue further radiation treatments and would like to focus on pain management and hospice. Her daughter notes she would like to have a family discussion with spring encaser, palliative care, and the patient tomorrow and in the meantime the patient would like to have one-time hydration by IV overnight with the intention to discontinue all artificial nutrition and transition to [employer]EL[employer] 2/. Should she have any clinical worsening she would want to move [employer] and have family updated tonab Paloma does reports she has intermittent alternating loose bowel movements and some constipation, which have been slightly loose with a diffusely mildly tender abdomen without focal tenderness. She has had multiple hospital exposures noted would be okay with C. difficile treatment and is agreeable to PCR testing, she does not want any type of CAT scans or further imaging to evaluate her abdomen. She also does not wish to have any scans of her neck performed and notes even if there was infection/abscess she would not want surgery or drainage to treat that she would want symptomatic care. Denies chest pain, chest pressure. She notes her pain is significantly improved after 2 mg of morphine in the ER. Patient recently transferred to [facility] from [facility], does not have records available at this time. Requested, patient's daughter will attempt to get updated record Admission Exam Per Admitting Provider General: A&Ox3. Appears fatigued. Nontoxic. HEENT: L neck with tender, mildly erythamatous mass. Pulm: Diminished. -wheezes, -rales, -rhonchi. Symmetrical chest rise. No increased work of breathing. No respiratory distress. Cardiac: RRR, -mrg. Radial pulses intact and symmetrical. Abdominal: Soft, mildl diffuse tenderness without rebound/guarding. BS present. Principal Diagnosis request for hospice Discharge Exam Gen: ill appearing and frail appearing patient in NAD HEENT: AT NC MMM Resp: no increased work of breathing CV: clinically well perfused Abd: non-distended MSK: no obvious deformities Skin: no rashes or bruising Neuro: alert and oriented Psych: appropriate mood and affect Discharge Data Allergies Allergy/AdvReac Type Severity Reaction Status Date / Time No Known Drug Allergies Allergy nausea to Verified 09/05/23 12:44 "narcotics", on morphine [id number] adm Consultations 08/27/23 18:28 ED Decision to Admit Stat Ordered Studies Chest X-Ray 08/27/23 16:47 FINDINGS: The cardiac silhouette is normal in size. There is a mildly tortuous and calcified thoracic aorta. Cervical spinal fusion hardware is noted. No pneumothorax. No focal lung consolidations to suggest a pneumonia. No evidence for pulmonary edema. There is blunting of the right lateral costophrenic sulcus. No acute fractures identified. IMPRESSION: 1. Blunting of the right lateral costophrenic sulcus which could be due to chronic pleural thickening or a trace right pleural effusion. 2. Otherwise, no acute process within the chest. Face CT 09/03/23 14:07 FINDINGS: The imaged intracranial structures demonstrate no acute abnormality. Involutional changes with chronic microvascular ischemic disease. Partially imaged large infiltrative left neck mass with invasion into the sternocleidomastoid muscle. There are adjacent centrally necrotic lymph nodes within the left neck measuring up to 1.2 x 1.0 cm. The left internal jugular vein is effaced by this mass. Atherosclerosis of the carotid bulbs. Prior bilateral lens repair. Degenerative The spine. Small left mastoid effusion. The right mastoid air cells and paranasal sinuses are relatively clear. Numerous missing teeth. Degenerative changes of the temporal mandibular joints. IMPRESSION: 1. Partially imaged infiltrative malignant left neck mass is better seen on the CT soft tissue neck study of same day. This mass involves the sternocleidomastoid muscle and effaces the left internal jugular vein. 2. Metastatic left cervical chain lymphadenopathy. 3. No evidence of osseous metastasis. Soft Tissue Neck CT 09/03/23 14:07 FINDINGS: There is a heterogeneous infiltrative mass within the left side of the neck centered at the level of the cricoid cartilage which obliterates the major ity of the left sternocleidomastoid muscle and measures approximately 7.8 x 5.2 x 4.0 cm. This mass partially encases the left common carotid artery without significant narrowing. This mass extends to the skin surface of the left side the neck and likely accounts for the skin thickening at this location. This mass appears to track along the proximal aspect of the left sternocleidomastoid muscle up to the C1 level on image 110. There are few heterogeneous enhancing and mildly enlarged left cervical lymph nodes consistent with metastatic disease. Dominant left necrotic cervical lymph node on image 204 measures 12 mm. This mass abuts but does not clearly invade into the left submandibular gland and inferior left parotid gland. No right-sided cervical lymphadenopathy. The left internal jugular vein is not identified and is likely obliterated by this left neck mass. The right cervical vessels are patent. The orbits and visualized brain parenchyma are unremarkable. Anterior cervical discectomy within the lower cervical spine. The paranasal sinuses and mastoid air cells are clear. No suspicious lytic or blastic osseous lesions. The lung apices will be reported on the same day chest CT. Partially visualized left PICC is noted. Prevertebral soft tissues are intact. IMPRESSION: 1. An infiltrative 7.8 x 5.2 x 4.0 cm heterogeneous mass which obliterates the majority the left sternocleidomastoid muscle as described above. This could represent metastatic disease or a primary head and neck cancer. 2. Multiple mildly enlarged and necrotic left cervical lymph nodes consistent with metastatic disease. Hospital Course (1) Goals of care, counseling/discussion: 87 year old female w/ history of head and neck cancer resulting in dysphagia on hospice with BAND INSTRUMENT REPAIRER pump with pain well controlled and stable for d/c home hospice. Throat Cancer: Repeat CT demonstrates infiltrative mass obliterates L SCM, multiple mildly enlarged, necrotic L cervical lymph nodes consistent with metastatic disease despite one year of treatment with Keytruda. Worsening throat pain. Goals of care: Patient on [employer] with plans for discharge to son's home. Adequate control with fenatyl 10 mcg Q20 min PRN. Arrangements made for fentanyl [employer] INSTRUMENT REPAIRER via home hospice. Declines feeding tube, further radiation/treatment of cancer. Continue comfort measures. Lidocaine/Magic mouthwas as needed. IVF fluids as needed to maintain euvolemic state. Benadryl/Hydrocortisone as needed for rash Leukocytosis: Noted on admission and trended initially - likely secondary to malignancy and steroid use. Will no longer monitor. DVT PPx: SCDs Code status: DNR/DNI Dispo: Home hospice when B[employer] INSTRUMENT REPAIRER (2) Throat cancer: (3) Leukocytosis: (4) Dehydration: Total Time Total Time Spent Total Time Spent (In Minutes): <30 Discharge Plan Discharge Items Patient Disposition: Hospice - Home Reason For Visit: CANCER, HOSPICE REQUEST Discharge Diagnosis: hospice request Activity: Per Instructions section Non-emergency contact: Primary Care Provider and Oncologist Call non-emergency contact if: your pain is not controlled Follow-up/Referrals: Braulio Monique DO [Primary Care Provider] - Diet: Regular Diet Texture: Easy to Chew Addtl Attending Provider Instructions: You were seen in the hospital for dehydration and pain control. We were able to control your pain with a fentanyl BAND INSTRUMENT REPAIRER. We will be sending you home on hospice with this and your other medications to keep you comfortable in this phase of your life. It was an honor being a part of your care team. Thank you for allowing us to participate in your care Pending Studies at Discharge: No Stand-Alone Forms: My [facility] Medications and DC Order Prescriptions: New polyethylene glycol 3350 [Miralax] 17 gram Powder In Packet 17 g PO DAILY PRN (Reason: constipation) Qty: 100 0RF naloxone 0.4 mg/mL Solution 0.1 mg IV Q5M PRN (Reason: opioid reversal) Qty: 25 0RF melatonin 3 mg Tablet 3 mg PO HS PRN (Reason: sleep) Qty: 30 0RF Anti-Itch(diphenhyd) with Zinc 2-0.1 % Cream 1 applic EXT TID PRN (Reason: itching) Qty: 35 0RF diphenhydramine HCl 50 mg/mL Solution 25 mg IV Q6H PRN (Reason: itching) Qty: 25 0RF fentanyl citrate (PF) 50 mcg/mL Solution 10 mcg IV Q20M PRNQty: 0 0RF lidocaine HCl [Lidocaine Viscous] 2 % Solution 15 ml MT Q4 PRN (Reason: mouth pain) 30 Days Qty: 100 0RF hydrocortisone 2.5 % Cream 1 applic EXT BID PRN (Reason: itching) Qty: 30 0RF heparin, porcine (PF) 10 unit/mL Syringe 50 unit Flush PRN PRN (Reason: IV line flush) Qty: 180 0RF ondansetron HCl (PF) 4 mg/2 mL Solution 4 mg IV Q6H PRN (Reason: nausea and vomiting) Qty: 50 0RF First - Mouthwash Blm [Magic Mouthwash] 5 ml PO Q3H PRN (Reason: pain) Qty: 500 4RF zolpidem 5 mg Tablet 5 mg PO HS PRN (Reason: sleep) 30 Days Qty: 30 0RF Continued acetaminophen [Tylenol Extra Strength] 500 mg Tablet 1,000 mg PO DIRECTED PRN (Reason: Pain) ibuprofen 200 mg Tablet 400 mg PO DIRECTED PRN (Reason: Pain) Discontinued prednisone 5 mg Tablet 5 mg PO DAILY levothyroxine 50 mcg Tablet 0 mcg PO DAILY Rx Instructions: UNSURE OF STRENGTH, UNABLE TO VERIFY cholecalciferol (vitamin D3) [Vitamin D3] 25 mcg (1,000 unit) Capsule 0 mcg PO DAILY Rx Instructions: UNSURE OF STRENGTH duloxetine [Cymbalta] 30 mg Capsule,Delayed Release(Dr/Ec) 0 mg PO DAILY Rx Instructions: UNSURE OF STRENGTH, UNABLE TO VERIFY Discharge Orders: Discharge Order (Routine); Ordered 09/11/23 Ordered By: Cecile Patel Admission Data Admit Date/Time: 08/28/23 13:14 Attending Provider: Dominick Epps Admit Provider: Isaiah Mace Primary Care Provider: Braulio Monique Other Providers: Braulio Quach [place]; Dominick Epps; Isaiah Mace Other Interventions: Discharge Summary Assessment (RN) Last Done: 09/11/23 10:36 Supervising Physician Co-Signing Physician Notes I personally examined the patient and verified all kinney points of history and exam, discussed case, and agree with decision making with Dr Patel resting and appears comfortable vitals noted sleeping comfortably nad heent nc at mmm breathing unlabored no accessory muscles good effort Dysphagia, acute on chronic pain, head neck cancer Home hospice and [employer] INSTRUMENT REPAIRER, at pt request sent Rx for ambien for sleep as well otherwise as above Resident Activity Tracking Resident Involvement: Resident Care Provided Care Provided: Adult Hospital Medicine
--- NOTE | 2023-09-11 13:00 | Billing Data ---
Date of Service September 11, 2023 Coding Level of Care Code 45457 IN/OBS DISCH 30 MIN/LESS
--- NOTE | 2023-09-15 11:25 | Coding Query ---
MALNUTRITION To promote full compliance with coding requirements relating to patient care, physician participation is requested in all cases of legal stenographer uncertainty. Please assist us with the question(s) below: Please place an X within the parenthesis (x). If other, please document: "Malnutrition" is documented in this record. If possible, please check the box that provides a more specific diagnosis:( progress note 09/05 mentions malnutrition ) ( ) Mild malnutrition ( ) Moderate malnutrition (x ) Severe malnutrition ( ) Protein malnutrition (kwashiorkor) ( ) Severe protein calorie malnutrition ( ) Protein calorie malnutrition, unspecified ( ) Other (please specify): Was this diagnosis present on admission? Please place an X within the parenthesis (x). (x ) Present on admission ( ) Not present on admission ( ) Unable to be clinically determined Thank you CLEMENTINE Poole [facility]
== END 2023-09-11 13:27 | disposition hospice, home (50) | DRG 947 ==
LOC: 3E 16:08 → ED 16:08 → SUATTDRO 20:33 → 3E 23:04 → SUATTDRO 08-28 13:14